=== PATIENT | female | born 1990 | race Caucasian/White ===

== ENCOUNTER 2024-02-12 07:55 | Inpatient (IN) ==
[2024-02-12] MEDS ORDERED: LIDOCAINE 1% LOCAL 20 ML VIAL INFIL PRN (10:02)
--- NOTE | 2024-02-12 10:09 | History & Physical Report ---
Date of Service February 12, 2024 Assessment & Plan (1) (vaginal after ): History of Present Illness Chief Complaint: active labor 41 weeks 1 day gestation previous section Primary Care Provider: NO PCP Patient is a 33-year-old 2 para 1. Previous section 2020. For prolonged rupture of membranes and failure to progress with arrest at 4 cm. She delivered a live 7 pound 11 ounce male in good condition via section. Patient now requests . She has had no problems. is well dated. Her due date is 02/04/2024. Hurst labor started 11 PM the night prior to admission. Been laboring throughout the night. Was admitted with strong contractions which she is breathing through and a small amount of bloody show. No history of leakage of fluid. Allergies Allergy/AdvReac Type Severity Reaction Status Date / Time No Known Allergies Allergy Unknown UNKNOWN Verified 11/09/20 14:06 Home Medications Medication Instructions Recorded Confirmed Type prenat.vits,jaiden,lma-odev-wbywv 1 tab PO DAILY 08/24/20 02/12/24 History ketorolac 0.5 % eye drops 1 drp OPR Q6H PRN edema #5 mL 08/12/22 02/12/24 Rx iron 1 tab PO DAILY 02/12/24 02/12/24 History Past Med/Surg History Problem List (Updated 02/12/24 @ 10:09 by Dwain Cardoso MD) (vaginal after ) No significant past medical history Medical History (Updated 02/12/24 @ 10:09 by Dwain Cardoso MD) Anemia History of chicken pox Surgical History H/O section H/O wisdom tooth extraction Family History Grandmother (Maternal) Colorectal cancer Father Colorectal cancer Denies family history of Ovarian cancer Prostate cancer Diabetes Heart disease Breast cancer Social History Smoking Status: Never smoker Second Hand Exposure: No; Do You Dip or Chew Tobacco: No; Hx Alcohol Use: No Hx Substance Use: No Preferred Language: Andorran Communication Ability: Effective Hearing Ability: Normal 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 Heart had a regular rhythm S1 and S2 are normal. Lungs are clear to auscultation percussion. Neck was supple trachea midline. Abdomen revealed a term size fetus estimated weight of 7 pounds. Well-healed Pfannenstiel scar. There was no calf tenderness. Pelvic exam revealed the cervix to be 90% effaced. 1 cm dilated. Mid position. Estimated level of the head was a -1 position. Small amount of bloody show. Results & Data Results & Data Vital Signs (Past 12 Hours) Vital Signs Pulse BP 02/12/24 08:59 96 H 108/55 L
[2024-02-12 11:01] LABS: Hematocrit (blood only) 39.4 % (37.0-47.0); Hemoglobin 13.5 g/dl (12.0-16.0); Mean Corpuscular Hemoglobin 30.5 pg (25.0-34.0); Mean Corpuscular Hgb Conc 34.3 g/dL (32.0-36.0); Mean Corpuscular Volume 88.9 fL (80.0-100.0); Mean Platelet Volume 11.5 fL (9.4-12.4); Platelet Count 151 K/uL (130-400); RDW Standard Deviation 42.3 fL (36.4-46.3); Red Blood Count 4.43 M/uL (4.20-5.40)
--- OUTSIDE RECORDS SUMMARY | 2024-02-12 12:51 | External Medical Summary | Summary of Care ---
Author Name Unknown Organization [facility] Address [address] [place] [address] Phone [phone] Care Team Providers Care Nuclear Medicine Tech Name Role Phone Peg Blood MD Primary Care Provider [phone] Reason for Visit * Reason Comments Return Visit Encounter Details Date Type Department Care Team (Late st Contact Info) Description 01/30/2024 2:45 PM EDT Office Visit Gynecology/Obstetri iker Das [address] [facility] [place] [address] Pablo Nunez MD [address] [facility] [place] [address] Nurse Thiago [facility] [address] [facility] [address] Health counseling*; Encounter for supervision of normal in first trimester, unspecified ; History of ; Multigravida of advanced maternal age in third trimester Allergies No known active allergiesdocumented as of this encounter (statuses as of 01/30/2024) Medications Medication Sig Dispensed Refills Start Date End Date Status 19 29-1 MG Oral Tablet Take 1 Tablet by mouth in the morning. Active Clindamycin Phosphate 1 % External GelIndications:Acne vulgaris Apply to clean face daily in the morning 60 g 5 11/18/2023 Active Ferrous Sulfate 300 MG/6.8ML Oral Solution (Iron Supplement) Take by mouth. Active Hydrocortisone (Perianal) 2.5 % External Cream Administer into the rectum 2 times a day. For no more than 7 days. 28 g 01/10/2024 Active documented as of this encounter (statuses as of 01/30/2024) Active Problems Problem Noted Date Diagnosed Date AMA (advanced maternal age) multigravida 35+ Supervision of normal 07/12/2023 History of 07/12/2023 Overview: Desires TOLAC Health counseling 07/04/2023 Overview: Problem Action Taken Date entered Entered by Date resolved Advance maternal age Maternal Medicine Consult 07/04/2023 Love Shine RN 07/04/2023 Lack of knowledge regarding Labor & Delivery Encourage childbirth education classes and Education class schedule given to patient 07/04/2023 Love Shine RN 07/04/2023 Lack of knowledge of community services Care Management Consult 07/04/2023 Love Shine RN 07/04/2023 Need for baby supplies Distribute cribs letter Refer to local support centers 07/04/2023 Love Shine RN 07/04/2023 Problem Action Taken Date entered Entered by Date resolved Current needs or questions Discussed WIC has letter. Patient denies having any current needs or questions 08/09/2023 Lisa Saab RN 08/09/2023 Problem Action Taken Date entered Entered by Date resolved Current needs or questions Patient denies having any current needs or questions 10/09/2023 Lisa Pollard RN 10/09/2023 Problem Action Taken Date entered Entered by Date resolved Current needs or questions Patient denies having any current needs or questions 11/05/2023 Lisa Saab RN 11/05/2023 Problem Action Taken Date entered Entered by Date resolved Current needs or questions Patient denies having any current needs or questions 12/09/2023 Lisa Saab RN 12/09/2023 Problem Action Taken Date entered Entered by Date resolved Current needs or questions GBS discussed. Ready for the hospital. Patient denies having any current needs or questions 01/10/2024 Lisa Saab RN 01/10/2024 Problem Action Taken Date entered Entered by Date resolved Current needs or questions Patient denies having any current needs or questions 01/20/2024 Lisa Saab RN 01/20/2024 Problem Action Taken Date entered Entered by Date resolved Current needs or questions Patient denies having any current needs or questions 01/30/2024 Lisa Pollard RN 01/30/2024 Last Assessment & Plan: Problem Action Taken Date entered Entered by Date resolved Current needs or questions GBS discussed Patient denies having any current needs or questions 12/27/2023 Lisa Saab RN 12/27/2023 Estimated Date of Delivery Comme nts Yes 02/04/2024 Based on Ultraso und documented as of this encounter (statuses as of 01/30/2024) Resolved Problems Problem Noted Date Diagnosed Date Resolved Date Antepartum anemia complicating 12/30/2020 04/04/2021 Overview: hgb 11.5 at 27 weeks, start BID Vitron C Marginal insertion of umbili jaiden cord affecting management of mother 12/30/2020 Overview: MFM advise growth scan , normal first 12/13/202003/22 Overview: Transfer care from [facility]; NOB labs - blooe type B+, antibody neg, rubella immune, RPR non-reactive, HIV neg, HbSag neg, Gc/Ct neg, 1 hr GTT 98; declined cell-free DNA screen documented as of this encounter (statuses as of 01/30/2024) Immunizations Name Administration Dates Next Due TDAP (age 10 and older)(Boostrix) 01/10/2021 documented as of this encounter Social History Tobacco Use Types Packs/Day Years Used Date Smoking Tobacco: Former Smokeless Tobacco: Never Alcohol Use Standard Drinks/Week Comments Not Currently 0 (1 standard drink = 0.6 oz pur e alcohol) PHQ-2 Answer Date Recorded PHQ Adult Total Score 0 07/12/2023 Hunger Vital Sign Answer Date Recorded Within the past 12 months, y ou worried that your food would run out before you got the money to buy more. Never true 07/12/19 24 Within the past 12 months, t he food you bought just didn't last and you didn't have money to get more. Never true 07/12/2023 [place] Depression Scale Answer Date Recorded [place] Depression Scale Total 6 12/09/2023 The thought of harming myself has occurred to me . Never 12/09/2023 Childcare Answer Date Recorded Do you feel overwhelmed with taking care of a child, family member or friend? No 07/12/2023 Does your family need help f inding childcare? (Household - for ages 0-17 years) Not on file 07/12/2023 Clothing Answer Date Recorded Have you been unable to get clothing when it was really needed? No 07/12/2023 Is your family able to get c lothes or diapers when needed? (Household - for ages 0-17 years) Not on file 07/12/2023 Personal Safety Answer Date Recorded Do you feel unsafe or have concerns for your saf ety? No 07/12/2023 Do you have concerns for you r family's safety? (Household - for ages 0-17 years) Not on file 07/12/2023 Utilities Answer Date Recorded Do you have trouble paying y our heating, water, or electric bill? No 07/12/2023 Is your family able to pay t he heat, water, or electric bill? (Household - for ages 0-17 years) Not on file 07/12/2023 Does your family have access to good internet? (Household - for ages 0-17 years) Not on file 07/12/2023 Employment Status Answer Date Recorded Are you unemployed or without regular income? No 07/12/2023 Does the household have a unm cancer centerlar source of income? (Household - for ages 0-17 years) Not on file 07/12/2023 Social Connections Answer Date Recorded How often do you feel lonely or isolated from th ose around you? Never 07/12/2023 Financial Resource Strain Answer Date R ecorded Do you have any trouble payi ng for your medications, or do you think you might in the future? No 07/12/2023 Does your family have troubl e paying for medicine? (Household - for ages 0-17 years) Not on file 07/12/2023 Transportation Needs Answer Date Record ed READ ONLY Do you have troubl e getting a ride to medical visits or work? Never True 07/12/2023 Does your family have a hard time getting a ride to doctors visits? (Household - for ages 0-17 years) Not on file 07/12/2023 Has lack of transportation k ept you from medical appointments, meetings, work, or from getting things needed for daily living? Check all that apply. (Adult - for ages 18 years and over) Not on file 07/12/2023 Do you (or your family) have trouble finding or paying for a ride (transportation)? (Household - for ages 0-17 years) Not on file 07/12/2023 Housing Stability Answer Date Recorded Do you currently live in a s helter or have no steady place to sleep at night? Yes 07/12/2023 READ ONLY Do you think you a re at risk of becoming homeless? No 07/12/2023 Does your family worry about paying for your home or becoming homeless? (Household - for ages 0-17 years) Not on file 0 07/12/2023 Are you homeless or worried that you might be in the future? (Adult - for ages 18 years and over) Not on file Are you (or your family) sybil eless or worried that you might be in the future? (Household - for ages 0-17 years) Not on file Food Insecurity Answer Date Recorded Do you need food for this week? No 07/12/2023 Are you able to get enough f ood for your family? (Household - for ages 0-17 years) Not on file 07/12/2023 Does your family need food t his week? (Household - for ages 0-17 years) Not on file 07/12/2023 Do you always have enough fo od for your family? (Household - for ages 0-17 years) Not on file 07/12/2023 Estimated Date of Delivery Comme nts Yes 02/04/2024 Based on Ultraso und Sex and Gender Information Value Date Recorded Sex Assigned at Female 07/12/2023 1:37 PM EDT Gender Identity Female 07/12/2023 1:37 PM EDT Sexual Orientation Straight 07/12/2023 1: 37 PM EDT Job Start Date Occupation Industry Not on file Not on file Not on file documented as of this encounter Progress Notes * Pablo Nunez MD - 01/30/2024 3:33 PM EDT Pt doing well TOLAC; Once again, we have discussed risk of Pt wanted to labor at home . I have discouraged that,. Made her aware, will benefit from monitoring in utero when she is in labor. So we cani intervene if there is distress. Discussed labor signs with pt * Nat Earl LPN - 01/30/2024 3:06 PM EDT [id number] Discuss TOLAC documented in this encounter Nursing Notes * Lisa Pollard RN - 01/30/2024 3:20 PM EDT Patient seen by [facility] Revenue Cycle Specialist. Patient denies any questions or concerns. documented in this encounter Plan of Treatment Health Maintenance Due Date Last Done Comments Hepatitis B Vaccine (1 of 3 - 19+ 3-dose series) 2007 COVID-19 Vaccine (2023-2 5 season) 2023 Influenza Vaccine (FLU shot) (#1) 2023 Depression Screening 07/11/2024 07/12/2023 Diabetes Screening 01/04/2026 01/04/2023 Pap Smear 07/11/2026 07/12/2023 Cervical Cancer Screening 07/11/2028 HPV/Co-Test 07/11/2028 07/12/2023, 08/20/2020 DTap/Tdap Vaccines (2 - Td o r Tdap) 01/10/2031 01/10/2021 HPV (Gardasil) Vaccine Aged Out No lo nger eligible based on patient's age to complete this topic MENINGOCOCCAL (MENACTRA/MENVEO) Aged Out No longer eligible b ased on patient's age to complete this topic Pneumococcal Vaccine: Pediatrics (0 to 5 Years) and At-Risk Patients (6 to 64 Years) Aged Out No longer eligible b ased on patient's age to complete this topic documented as of this encounter Medical Devices Not on filedocumented as of this encounter Visit Diagnoses Diagnosis Health counseling- Primary Other specified counseling Encounter for supervision of normal in first trimester, unspecified History of Other postprocedural status Multigravida of advanced maternal age in third trimester documented in this encounter Advance Directives * Full Code (Latest Code Status on File) Date Activated Date Inactivated Comments 03/25/2021 5:15 PM 03/28/2021 8:20 PM This order r eflects the patients wishes and were consensually agreed upon. Care Teams Nuclear Medicine Tech Relationship Specialty Start Date End Date Peg Blood MD [address] [facility] [place] [address] PCP - General Family Medicine 01/10/23 documented as of this encounter
--- OUTSIDE RECORDS SUMMARY | 2024-02-12 12:51 | External Medical Summary | Summary of Care ---
Author Name Unknown Organization [facility] Address [address] [place] [address] Phone [phone] Care Team Providers Care Clay Mixer Name Role Phone Peg Blood MD Primary Care Provider [phone] Encounter Details Date Type Department Care Team (Late st Contact Info) Description 01/01/2024 Telephone Gynecology/Obstetrics [facility] [address] [place] [address] Judith Montero, DNP, CNM [address] [facility] [place] [phone] Allergies No known active allergiesdocumented as of this encounter (statuses as of 01/01/2024) Medications Medication Sig Dispensed Refills Start Date End Date Status 19 29-1 MG Oral Tablet Take 1 Tablet by mouth in the morning. Active Clindamycin Phosphate 1 % External GelIndications:Acne vulgaris Apply to clean face daily in the morning 60 g 5 11/18/2023 Active Ferrous Sulfate 300 MG/6.8ML Oral Solution (Iron Supplement) Take by mouth. Act yu documented as of this encounter (statuses as of 01/01/2024) Active Problems Problem Noted Date Diagnosed Date [...] or questions 12/09/2023 Lisa Saab RN 12/09/2023 Last Assessment & Plan: Problem Action Taken Date entered Entered by Date resolved Current needs or questions GBS discussed Patient denies having any current needs or questions 12/27/2023 Lisa Saab RN 12/27/2023 Estimated Date of Delivery Comme nts Yes 01/28/2024 Based on last me nstrual period of 04/23/2023 (Exact Date) documented as of this encounter (statuses as of 01/01/2024) Resolved Problems Problem Noted Date Diagnosed Date Resolved Date Antepartum anemia complicating 12/30/2020 04/04/2021 Overview: hgb 11.5 at 27 weeks, start BID Vitron C Marginal insertion of umbili jaiden cord affecting management of mother 12/30/2020 Overview: MFM advise growth scan , normal first 12/13/202003/22 Overview: Transfer care from [facility]; NOB labs - blooe type B+, antibody neg, rubella immune, RPR non-reactive, HIV neg, HbSag neg, Gc/Ct neg, 1 hr GTT 98; declined cell-free DNA screen documented as of this encounter (statuses as of 01/01/2024) Immunizations Name Administration Dates Next Due TDAP [...] money to get more. Never true 07/12/2023 [place] Depression Scale Answer Date Recorded [place] Depression Scale Total 6 12/09/2023 The thought [...] No 07/12/2023 Does the household have a zuni hospitallar source of income? (Household - for ages [...] Estimated Date of Delivery Comme nts Yes 01/28/2024 Based on last me nstrual period of 04/23/2023 (Exact Date) Sex and Gender Information Value Date Recorded Sex Assigned at Female 07/12/2023 1:37 PM EDT Gender Identity Female 07/12/2023 1:37 PM EDT Sexual Orientation Straight 07/12/2023 1: 37 PM EDT Job Start Date Occupation Industry Not on file Not on file Not on file documented as of this encounter Miscellaneous Notes * Telephone Encounter - Rajni Dobbs LPN - 01/01/2024 2:16 PM EDT Patient notified. * Telephone Encounter - Rajni Dobbs LPN - 01/01/2024 1:37 PM EDT ----- Message from Judith Montero sent at 01/01/2024 1:33 PM EDT ----- Correction, she already has iron. So will cancel vitron c and she can just continue her iron supplementation. Thanks! * Telephone Encounter - Rajni Dobbs LPN - 01/01/2024 1:35 PM EDT left message for patient to call office * Telephone Encounter - Rajni Dobbs LPN - 01/01/2024 1:33 PM EDT ----- Message from Judith Montero sent at 01/01/2024 1:32 PM EDT ----- Please let piper know she is slightly anemic, increase dietary iron and rx placed for vitron c. Thanks! documented in this encounter Plan of Treatment Upcoming Encounters Date Type Department Care Team (Late st Contact Info) Description 01/03/2024 2:00 PM EDT Office Visit Gynecology/Obstetrics [facility] [address] [place] [address] Jenna Jean PA-C [address] [employer] [place] [address] Nurse Thiago [facility] [place] [address] [place] [address] 01/06/2024 9:45 AM EDT Imaging Radiology [facility] [address] [facility] [address] [place] [address] Health Maintenance Due Date Last Done Comments Hepatitis B Vaccine (1 of 3 - 19+ 3-dose series) 2007 COVID-19 Vaccine (1 - 2022-2 4 season) 2023 Influenza Vaccine (FLU shot) (#1) [...] Not on filedocumented as of this encounter Advance Directives * Full Code (Latest Code Status on File) Date Activated Date Inactivated Comments 03/25/2021 5:15 PM 03/28/2021 8:20 PM This order r eflects the patients wishes and were consensually agreed upon. Care Teams Clay Mixer Relationship Specialty Start Date End Date Peg Blood MD [address] [place] [address] PCP - General Family Medicine 01/10/23 documented as of this encounter
--- OUTSIDE RECORDS SUMMARY | 2024-02-12 12:51 | External Medical Summary ---
Author Name Unknown Address Unknown Organization [id number]:[facility] - [address] [facility] [address] Laboratory Report Ordering Provider Test Date Status [email or web address] 01/03/2024 14:41:02 Final Observation Date Value Abnormality Reference (Units ) Status Bacterial vaginosis [Interpretation] in Vaginal fluid Qualitative 01/03/2024 14:41:02 Negative Negative Final Negative for Bacterial Vagin osis. Correlate results with other clinical findings. Chiara sp DNA [Presence] in Vaginal fluid by Probe 01/03/2024 14:41:02 Negative Negative Final No Chiara species group RNA detected. Correlate results with other clinical findings. Chiara glabrata RNA [Presen ce] in Vaginal fluid by CATALINO with probe detection 01/03/2024 14:41:02 Negative Negative Final No Chiara glabrata RNA dete cted. Correlate results with other clinical findings. Trichomonas vaginalis DNA [P resence] in Vaginal fluid by Probe 01/03/2024 14:41:02 Negative Negative Final No Trichomonas vaginalis RNA detected. Performing Location [facility] - [address] [facility] [address]
--- OUTSIDE RECORDS SUMMARY | 2024-02-12 12:51 | External Medical Summary | Summary of Care ---
Author Name Unknown Organization [facility] Address [address] [place] [address] Phone [phone] Care Team Providers Care Hazmat Cdl A Driver Name Role Phone Peg Blood MD Primary Care Provider [phone] Reason for Visit * Reason Comments Return Visit Encounter Details Date Type Department Care Team (Late st Contact Info) Description 01/20/2024 8:30 AM EDT Office Visit Gynecology/Obstetri iker Das [address] [facility] [place] [address] Pablo Nunez MD [address] [place] [address] Nurse Thiago [facility] Return Essence [address] [facility] [address] Health counseling*; Encounter for supervision of other normal in third trimester; History of ; Multigravida of advanced maternal age in third trimester Allergies No known active allergiesdocumented as of this encounter (statuses as of 01/20/2024) Medications Medication Sig Dispensed Refills Start Date [...] as of this encounter (statuses as of 01/20/2024) Active Problems Problem Noted Date Diagnosed Date [...] Shine RN 07/04/2023 Lack of knowledge of [facility] services Care Management Consult 07/04/2023 Love Shine [...] or questions 01/20/2024 Lisa Saab RN 01/20/2024 Last Assessment & Plan: Problem Action Taken Date entered Entered by Date resolved Current needs or questions GBS discussed Patient denies having any current needs or questions 12/27/2023 Lisa Saab RN 12/27/2023 Estimated Date of Delivery Comme nts Yes 02/04/2024 Based on Ultraso und documented as of this encounter (statuses as of 01/20/2024) Resolved Problems Problem Noted Date Diagnosed Date Resolved Date Antepartum anemia complicating 12/30/2020 04/04/2021 Overview: hgb 11.5 at 27 weeks, start BID Vitron C Marginal insertion of umbili jaiden cord affecting management of mother 12/30/2020 Overview: MFM advise growth scan , normal first 12/13/202003/22 Overview: Transfer care from [facility]; NOB labs - blooe type B+, antibody neg, rubella immune, RPR non-reactive, HIV neg, HbSag neg, Gc/Ct neg, 1 hr GTT 98; declined cell-free DNA screen documented as of this encounter (statuses as of 01/20/2024) Immunizations Name Administration Dates Next Due TDAP [...] money to get more. Never true 07/12/2023 [place] Depression Scale Answer Date Recorded [place] Depression Scale Total 6 12/09/2023 The thought [...] No 07/12/2023 Does the household have a re lar source of income? (Household - for ages [...] on file documented as of this encounter Last Filed Vital Signs Vital Sign Reading Time Taken Comments Blood Pressure 100/62 01/20/2024 8:34 AM EDT Pulse - - Temperature - - Respiratory Rate - - Oxygen Saturation - - Inhaled Oxygen Concentration - - Weight 79.4 kg (175 lb) 01/20/2024 8:34 AM EDT Height 165.1 cm (5' 5") 01/20/2024 8:34 AM EDT Body Mass Index 29.12 01/20/2024 8:34 AM EDT documented in this encounter Progress Notes * Pablo Nunez MD - 01/20/2024 8:41 AM EDT Ist time seeing pt Pt doing well No comaplaints Prior c/s discussed I reviewed with the patient risks of a (even if previously successful) for uterine rupture which may lead to adverse events to include maternal +/- , hypoxia leading to brain injury or cerbral palsy, need for emergent c/s requiring hysterectomy. Possible need for transfusion. I reviewed that this could occur .5-1%. . She is aware that with each c/section the risk for uterine rupture increases. Pt states understanding and wishes to proceed with trial of labor documented in this encounter Nursing Notes * Lisa Saab RN - 01/20/2024 8:42 AM EDT Patient seen by [facility] Baseball Sewer Hand. * Nat Earl LPN - 01/20/2024 8:35 AM EDT 37w6d Denies any concerns documented in this encounter Plan of Treatment Upcoming Encounters Date Type Department Care Team (Late st Contact Info) Description 01/30/2024 2:45 PM EDT Office Visit Gynecology/Obstetrics Marco Antonio Das [address] [place] [address] Pablo Nunez MD [address] [place] [address] Nurse Thiago [facility] Return Essence [address] [place] [address] Health Maintenance Due Date Last Done Comments Hepatitis B Vaccine (1 of 3 - 19+ 3-dose series) 2007 COVID-19 Vaccine (1 - 2023-2 5 season) 2023 Influenza Vaccine (FLU shot) [...] Other specified counseling Encounter for supervision of other normal in third trimester History of Other postprocedural status Multigravida of advanced maternal age in third trimester documented in this encounter Advance Directives * Full Code (Latest Code Status on File) Date Activated Date Inactivated Comments 03/25/2021 5:15 PM 03/28/2021 8:20 PM This order r eflects the patients wishes and were consensually agreed upon. Care Teams Hazmat Cdl A Driver Relationship Specialty Start Date End Date Peg Blood MD [address] [place] [address] PCP - General Family Medicine 01/10/23 documented as of this encounter
--- OUTSIDE RECORDS SUMMARY | 2024-02-12 12:51 | External Medical Summary | Summary of Care ---
Author Name Unknown Organization [facility] Address [address] [facility] [place] [address] Phone [phone] Care Team Providers Care Contracting Officer Name Role Phone Peg Blood MD Primary Care Provider [phone] Reason for Visit * Reason Comments Healthy Beginnings Return Encounter Details Date Type Department Care Team (Late st Contact Info) Description 02/10/2024 8:45 AM EDT Office Visit Gynecology/Obstetri iker Das [address] [facility] [place] [address] Jenna Jean PA-C [address] [place] [address] Nurse Thiago [facility] Return Essence [address] [place] [address] Encounter for supervision of other normal in third trimester*; Health counseling; History of ; Multigravida of advanced maternal age in third trimester; Post-term , 40-42 weeks of gestation Allergies No known active allergiesdocumented as of this encounter (statuses as of 02/10/2024) Medications Medication Sig Dispensed Refills Start Date [...] as of this encounter (statuses as of 02/10/2024) Active Problems Problem Noted Date Diagnosed Date [...] Shine RN 07/04/2023 Lack of knowledge of [facility] services Care Management Consult 07/04/2023 Love Shine [...] or questions 01/30/2024 Lisa Pollard RN 01/30/2024 Problem Action Taken Date entered Entered by Date resolved Current needs or questions Patient denies having any current needs or questions 02/10/2024 Lisa Saab RN 02/10/2024 Last Assessment & Plan: Problem Action Taken Date entered Entered by Date resolved Current needs or questions GBS discussed Patient denies having any current needs or questions 12/27/2023 Lisa Saab RN 12/27/2023 Estimated Date of Delivery Comme nts Yes 02/04/2024 Based on Ultraso und documented as of this encounter (statuses as of 02/10/2024) Resolved Problems Problem Noted Date Diagnosed Date Resolved Date Antepartum anemia complicating 12/30/2020 04/04/2021 Overview: hgb 11.5 at 27 weeks, start BID Vitron C Marginal insertion of umbili jaiden cord affecting management of mother 12/30/2020 Overview: MFM advise growth scan , normal first 12/13/202003/22 Overview: Transfer care from [facility]; NOB labs - blooe type B+, antibody neg, rubella immune, RPR non-reactive, HIV neg, HbSag neg, Gc/Ct neg, 1 hr GTT 98; declined cell-free DNA screen documented as of this encounter (statuses as of 02/10/2024) Immunizations Name Administration Dates Next Due TDAP [...] money to get more. Never true 07/12/2023 [place] Depression Scale Answer Date Recorded [place] Depression Scale Total 6 12/09/2023 The thought [...] 07/12/2023 Does the household have a re gular source of income? (Household - for ages [...] Sign Reading Time Taken Comments Blood Pressure 106/64 02/10/2024 8:57 AM EDT Pulse - - Temperature - - Respiratory Rate - - Oxygen Saturation - - Inhaled Oxygen Concentration - - Weight 80.3 kg (177 lb) 02/10/2024 8:57 AM EDT Height - - Body Mass Index 29.45 01/20/2024 8:34 AM EDT documented in this encounter Progress Notes * Jenna Jean PA-C - 02/10/2024 9:20 AM EDT 40w6d Contractions last night every 30 minutes then stopped. Politely declines cervical check. Denies VB,LOF. Baby is active. Reviewed scheduling postdate IOL given dates today. Pt states wants to avoid IOL as much as possible. Reviewed scheduling out as dates may not be available if she waits. She understands, declines scheduling today. Labor precautions given RTC in 2 days for NEDRA/NST/IZA for postdates Jenna Jean PA-C * Lucila Cardona CMA - 02/10/2024 8:57 AM EDT 40w6d Denies any concerns. Declines cervical check. documented in this encounter Plan of Treatment Upcoming Encounters Date Type Department Care Team (Late st Contact Info) Description 02/13/2024 9:30 AM EDT Imaging Radiology [address] [place] [address] Scheduled Orders Name Type Priority Associated Diagnoses Orde r Schedule US PREG LIMITED 1 OR MORE FETUSES Medical Imaging Routine Encounter for supervision of other normal in third trimester Post-term , 40-42 weeks of gestation Expected: 02/10/2024, Expires: 03/12/2025 Health Maintenance Due Date Last Done Comments [...] as of this encounter Visit Diagnoses Diagnosis Encounter for supervision of other normal in third trimester- Primary Health counseling Other specified counseling History of Other postprocedural status Multigravida of advanced maternal age in third trimester Post-term , 40-42 weeks of gestation Post term , unspecified episode of care documented in this encounter Advance Directives * Full Code (Latest Code Status on File) Date Activated Date Inactivated Comments 03/25/2021 5:15 PM 03/28/2021 8:20 PM This order r eflects the patients wishes and were consensually agreed upon. Care Teams Contracting Officer Relationship Specialty Start Date End Date Peg Blood MD [address] [place] [address], [place] [address] PCP - General Family Medicine 01/10/23 documented as of this encounter
--- OUTSIDE RECORDS SUMMARY | 2024-02-12 12:51 | External Medical Summary ---
Author Name Unknown Address Unknown Organization K01[place] [place] [facility] [address] [place] [address] Laboratory Report Ordering Provider Test Date Status WESLEY MCPHERSON 01/10/2024 09:02:26 Final Observation Date Value Abnormality Reference (Units ) Status Streptococcus agalactiae DNA [Presence] in Specimen by CATALINO with probe detection 01/10/2024 09:02:26 Negative Negative Final No Group B Streptococcus det ected by culture-enhanced PCR (amplified probe). GBS GBSCT - [facility] 01/10/2024 09:02:26 0.0 Final GBS SPCCT - [facility] 01/10/2024 09:02:26 31.5 Final Performing Location [facility] [place] [address] [place] [address]
--- OUTSIDE RECORDS SUMMARY | 2024-02-12 12:51 | External Medical Summary | Summary of Care ---
Author Name Unknown Organization [facility] Address [address] [facility] [place] [address] Phone [phone] Care Team Providers Care Take Away Man Name Role Phone Peg Blood MD Primary Care Provider [phone] Reason for Visit * Reason Comments Healthy Beginnings Return Encounter Details Date Type Department Care Team (Late st Contact Info) Description 01/03/2024 2:00 PM EDT Office Visit Gynecology/Obstetri iker Das [address] [facility] [place] [address] Jenna Jean PA-C [address] [place] [address] Nurse Thiago [facility] Return Essence [address] [place] [address] Encounter for supervision of other normal in third trimester*; Health counseling; History of ; Multigravida of advanced maternal age in third trimester Allergies No known active allergiesdocumented as of this encounter (statuses as of 01/03/2024) Medications Medication Sig Dispensed Refills Start Date [...] as of this encounter (statuses as of 01/03/2024) Active Problems Problem Noted Date Diagnosed Date [...] as of this encounter (statuses as of 01/03/2024) Resolved Problems Problem Noted Date Diagnosed Date Resolved Date Antepartum anemia complicating 12/30/2020 04/04/2021 Overview: hgb 11.5 at 27 weeks, start BID Vitron C Marginal insertion of umbili jaiden cord affecting management of mother 12/30/2020 Overview: MFM advise growth scan , normal first 12/13/202003/22 Overview: Transfer care from [facility]; NOB labs - blooe type B+, antibody neg, rubella immune, RPR non-reactive, HIV neg, HbSag neg, Gc/Ct neg, 1 hr GTT 98; declined cell-free DNA screen documented as of this encounter (statuses as of 01/03/2024) Immunizations Name Administration Dates Next Due TDAP [...] money to get more. Never true 07/12/2023 [place] Depression Scale Answer Date Recorded [place] Depression Scale Total 6 12/09/2023 The thought [...] Sign Reading Time Taken Comments Blood Pressure 84/60 01/03/2024 1:54 PM EDT Pulse - - Temperature - - Respiratory Rate - - Oxygen Saturation - - Inhaled Oxygen Concentration - - Weight 77.1 kg (170 lb) 01/03/2024 1:54 PM EDT Height 165.1 cm (5' 5") 01/03/2024 1:54 PM EDT Body Mass Index 28.29 01/03/2024 1:54 PM EDT documented in this encounter Progress Notes * Jenna Jean PA-C - 01/03/2024 3:01 PM EDT 35w3d Reviewed AYDEE with patient. Currently 01/28/2024. Her initial AYDEE selected was based on LMP (exact date). It was 7 days different from first trimeter ultrasound with AYDEE 02/04/2024. Anatomy ultrasound completed showed growth consistent with AYDEE from initial scan. Reviewed in detail with patient and based on this suggested AYDEE change to first trimester ultrasound dating which she was completely agreeable to. AYDEE 02/04/2024. GBS initially collected based on previous dating. Discontinued. Pt informed of likely need for repeat GBS with next visit and stated understanding. Pt also with compliant of vaginal itching, starting earlier this week. Has not tried anything. Denies clumpy white discharge. Vaginosis collected. Speculum exam revealed normal physiologic appearing discharge, mild erythema near introitus, cervix visually closed. Construction Supervisor Documentation Provider requested frit burner. Name of frit burner: Letty Lindsay LPN Ultrasound completed following visit today -- confirmed cephalic. Denies VB, LOF, contractions. Pos FM. RTC in 1 week Jenna Jean PA-C documented in this encounter Nursing Notes * Lisa Pollard RN - 01/03/2024 2:20 PM EDT Patient seen by [facility] Railroad Hand. Patient denies any questions or concerns. Lisa Pollard RN * Letty Young LPN - 01/03/2024 2:07 PM EDT 36w3d GBS today Vaginal itching earlier this week. documented in this encounter Plan of Treatment Upcoming Encounters Date Type Department Care Team (Late st Contact Info) Description 01/10/2024 8:30 AM EDT Office Visit [facility]necology[facility]stetrics Marco Antonio [facility] [place] [address] Jenna Jean PA-C [address] [place] [address] Nurse Thiago [facility] Return Essence [address] [place] [address] Pending Results Name Type Priority Associated Diagnoses Date /Time VAGINOSIS PANEL, PCR Lab Routine Encounter for supervision of other normal in third trimester 01/03/2024 2:41 PM EDT Scheduled Orders Name Type Priority Associated Diagnoses Orde r Schedule VAGINOSIS PANEL, PCR Lab Routine Encounter for supervision of other normal in third trimester Expected: 01/03/2024, Expires: 01/02/2025 Health Maintenance Due Date Last Done Comments [...] and were consensually agreed upon. Care Teams Take Away Man Relationship Specialty Start Date End Date Peg Blood MD [address] [place] [address] PCP - General Family Medicine 01/10/23 documented as of this encounter
--- OUTSIDE RECORDS SUMMARY | 2024-02-12 12:51 | External Medical Summary | Summary of Care ---
Author Name Unknown Organization [facility] Address [address] [place] [address] Phone [phone] Care Team Providers Care Metal Mold Dresser Name Role Phone Peg Blood MD Primary Care Provider [phone] Encounter Details Date Type Department Care Team (Late st Contact Info) Description 02/12/2024 Telephone [facility] Gynecology and Obstetrics [address] [place] [address] Mallika Francois CNM [address] [place], [place] [id number] Allergies No known active allergiesdocumented as of this encounter (statuses as of 02/12/2024) Medications Medication Sig Dispensed Refills Start Date [...] than 7 days. 28 g 01/10/2024 Active Breast Pump For lactating mother to breastfeed. 1 Each 02/10/2024 Active documented as of this encounter (statuses as of 02/12/2024) Active Problems Problem Noted Date Diagnosed Date AMA (advanced maternal age) multigravida 35+ Supervision of normal 07/12/2023 History of 07/12/2023 Overview: Desires [facility] Health counseling 07/04/2023 Overview: Problem Action Taken Date entered Entered by Date resolved Advance maternal age Maternal Medicine Consult 07/04/2023 Love Shine, RUSS 07/04/2023 Lack of knowledge regarding Labor & Delivery Encourage childbirth education classes and Education class schedule given to patient 07/04/2023 Love Shine RN 07/04/2023 Lack of knowledge of [facility] services Care Management Consult 07/04/2023 Love [...] as of this encounter (statuses as of 02/12/2024) Resolved Problems Problem Noted Date Diagnosed Date Resolved Date Antepartum anemia complicating 12/30/2020 04/04/2021 Overview: hgb 11.5 at 27 weeks, start BID Vitron C Marginal insertion of umbili jaiden cord affecting management of mother 12/30/2020 Overview: MFM advise growth scan , normal first 12/13/202003/22 Overview: Transfer care from [facility]; NOB labs - blooe type B+, antibody neg, rubella immune, RPR non-reactive, HIV neg, HbSag neg, Gc/Ct neg, 1 hr GTT 98; declined cell-free DNA screen documented as of this encounter (statuses as of 02/12/2024) Immunizations Name Administration Dates Next Due TDAP [...] money to get more. Never true 07/12/2023 [place] Depression Scale Answer Date Recorded [place] Depression Scale Total 6 12/09/2023 The thought [...] encounter Miscellaneous Notes * Telephone Encounter - Mallika Francois CNM - 02/12/2024 1:53 AM EDT Sharlene reports that she has been having contractions for the last 15-20 minutes for the last hour. She affirms movement, and she denies any bleeding or leaking of fluid. Recommended hydration, tylenol, warm bath. Call back if contractions are 5 min apart for one hour. documented in this encounter Plan of Treatment Upcoming Encounters Date Type Department Care Team (Late st Contact Info) Description 02/12/2024 10:00 AM EDT Office Visit Gynecology/Obstetrics [facility] [address] [place] [address] Ofelia Wodo CRNP [address] [place] [address] [facility] [address] [place] [address] 02/12/2024 12:30 PM EDT Imaging Radiology [facility] [address] [place] [address] Health Maintenance Due Date Last Done Comments [...] and were consensually agreed upon. Care Teams Metal Mold Dresser Relationship Specialty Start Date End Date Peg Blood MD [address] [facility] [place] [address] PCP - General Family Medicine 01/10/23 documented as of this encounter
--- OUTSIDE RECORDS SUMMARY | 2024-02-12 12:51 | External Medical Summary | Summary of Care ---
Author Name Unknown Organization [facility] Address [address] [facility] [place] [address] Phone [phone] Care Team Providers Care Roof Service Technician Name Role Phone Peg Blood MD Primary Care Provider [phone] Reason for Visit * Reason Comments Return Visit Encounter Details Date Type Department Care Team (Late st Contact Info) Description 01/10/2024 8:30 AM EDT Office Visit Gynecology/Obstetri iker Dsa [address] [facility] [place] [address] Jenna Jean PA-C [address] [place] [address] Nurse Thiago [facility] Return Essence [address] [facility] [place] [address] Encounter for supervision of other normal in third trimester*; Health counseling; History of ; Multigravida of advanced maternal age in third trimester Allergies No known active allergiesdocumented as of this encounter (statuses as of 01/10/2024) Medications Medication Sig Dispensed Refills Start Date [...] as of this encounter (statuses as of 01/10/2024) Active Problems Problem Noted Date Diagnosed Date [...] Shine RN 07/04/2023 Lack of knowledge of [facility] services Care Management Consult 07/04/2023 Love Shine [...] or questions 01/10/2024 Lisa Saab RN 01/10/2024 Last Assessment & Plan: Problem Action Taken Date entered Entered by Date resolved Current needs or questions GBS discussed Patient denies having any current needs or questions 12/27/2023 Lisa Saab RN 12/27/2023 Estimated Date of Delivery Comme nts Yes 02/04/2024 Based on Ultraso und documented as of this encounter (statuses as of 01/10/2024) Resolved Problems Problem Noted Date Diagnosed Date Resolved Date Antepartum anemia complicating 12/30/2020 04/04/2021 Overview: hgb 11.5 at 27 weeks, start BID Vitron C Marginal insertion of umbili jaiden cord affecting management of mother 12/30/2020 Overview: MFM advise growth scan , normal first 12/13/202003/22 Overview: Transfer care from [facility]; NOB labs - blooe type B+, antibody neg, rubella immune, RPR non-reactive, HIV neg, HbSag neg, Gc/Ct neg, 1 hr GTT 98; declined cell-free DNA screen documented as of this encounter (statuses as of 01/10/2024) Immunizations Name Administration Dates Next Due TDAP [...] money to get more. Never true 07/12/2023 [place] Depression Scale Answer Date Recorded [place] Depression Scale Total 6 12/09/2023 The thought [...] No 07/12/2023 Does the household have a [facility] source [facility] income? (Household - for [...] Sign Reading Time Taken Comments Blood Pressure 96/56 01/10/2024 8:37 AM EDT Pulse - - Temperature - - Respiratory Rate - - Oxygen Saturation - - Inhaled Oxygen Concentration - - Weight 78.5 kg (173 lb) 01/10/2024 8:37 AM EDT Height 165.1 cm (5' 5") 01/10/2024 8:37 AM EDT Body Mass Index 28.79 01/10/2024 8:37 AM EDT documented in this encounter Progress Notes * Jenna Jean PA-C - 01/10/2024 8:59 AM EDT 36w3d Doing well. Denies VB, LOF, contractions. Pos fm. GBS recollected today due to due date change. Several external hemorrhoids noted, not thrombosed. Pt asking for additional medication for hemorrhoids. Has been using preparation H with limited to no relief. Pruritis is most common bothersome symptom for her. Hydrocortisone cream short course sentfor additional relief. RTC in 1 week Jenna Jean PA-C documented in this encounter Nursing Notes * Lisa Saab RN - 01/10/2024 8:46 AM EDT Patient seen by [facility] Accounting Recruiter. documented in this encounter Plan of Treatment Upcoming Encounters Date Type Department Care Team (Late st Contact Info) Description 01/20/2024 8:30 AM EDT Office Visit Gynecology/Obstetrics Marco Antonio Das [address] [place] [address] Pablo Nunez MD [address] [place] [address] Nurse Thiago [facility] Beginning Return Essence [address] [place] [address] Pending Results Name Type Priority Associated Diagnoses Date /Time GROUP B STREP CULTURE/PCR Lab Routine Encounter for supervision of other normal in third trimester 01/10/2024 9:02 AM EDT Health Maintenance Due Date Last Done Comments [...] and were consensually agreed upon. Care Teams Roof Service Technician Relationship Specialty Start Date End Date Peg Blood MD [address] [place] [address] PCP - General Family Medicine 01/10/23 documented as of this encounter
--- OUTSIDE RECORDS SUMMARY | 2024-02-12 12:52 | External Medical Summary | Summary of Care ---
Author Name Unknown Organization [facility] Address [address] [place] [address] Phone [phone] Care Team Providers Care Sheet Metal Shop Helper Name Role Phone Peg Blood MD Primary Care Provider [phone] Reason for Visit * Reason Comments Return Visit Encounter Details Date Type Department Care Team (Late st Contact Info) Description 12/09/2023 11:45 AM EDT Office Visit Gynecology/Obstetric s [facility] [address] [place] [address] Judith Mc, DNP, CNM [address] [place], [place] [id number] Health counseling*; Encounter for supervision of normal , antepartum, unspecified ; History of ; Multigravida of advanced maternal age in third trimester; Antepartum anemia complicating Allergies No known active allergiesdocumented as of [...] Solution (Iron Supplement) Take by mouth. Active Vitron-C 65-125 MG Oral Tablet (Iron-Vitamin C 65-125 mg per tab)Indications:Ant epartum anemia complicating Take 1 Tablet by mouth in the morning. 60 Tablet 5 01/01/2024 01/01/2024 Discontinued (Medication/ Dose Changed) documented as of this encounter (statuses as [...] normal first 12/13/202003/22 Overview: Transfer care from [facility]; NOB labs - blooe type B+, [...] money to get more. Never true 07/12/2023 [place] Depression Scale Answer Date Recorded [place] Depression Scale Total 6 12/09/2023 The thought [...] No 07/12/2023 Does the household have a [facility] source of income? (Household - for ages [...] Sign Reading Time Taken Comments Blood Pressure 98/58 12/09/2023 11:53 AM EDT Pulse - - Temperature - - Respiratory Rate - - Oxygen Saturation - - Inhaled Oxygen Concentration - - Weight 78.5 kg (173 lb) 12/09/2023 11:53 AM EDT Height - - Body Mass Index 28.79 07/12/2023 1:19 PM EDT documented in this encounter Progress Notes * Judith Mc, BOBO, DAWNA - 12/09/2023 12:05 PM EDT Piper Castellanos is a 33 year old female here for her routine OB appointment at 32w6d Her Estimated Date of Delivery: 01/28/24 REVIEW OF SYSTEMS: She affirms movement. Denies vaginal bleeding, LOF, contractions, N/V, headaches. [place] Depression Scale: [place] Depression Scale Total: 6 [place] suicide question and score: Score of 3 = Yes, quite often. Score of 2 = Sometimes. Score of 1 = Hardly ever The thought of harming myself has occurred to me.: 0 States she feels more hormonally "emanuel" not depressed. Just feels burned out with work and caring for child. States she has felt much improved energy after taking iron. PHYSICAL EXAM: Filed Vitals: 12/09/23 1153 BP: 98/58 Weight: 78.5 kg (173 lb) ASSESSMENT/PLAN: (Z34.90) Encounter for supervision of normal , antepartum, unspecified (Z98.891) History of Plan: Plans a TOLAC (O09.523) Multigravida of advanced maternal age in third trimester Supervision of - Will have repeat CBC drawn next visit - labor precautions and kick counts reviewed - RTO in 2 weeks Judith Mc DNP, CNM * Lisa Saab RN - 12/09/2023 11:54 AM EDT Patient seen by [facility] Programmer Developer. Patient denies any questions or concerns. documented in this encounter Miscellaneous Notes * Addendum Note - Judith Mc DNP, CNM - 01/01/2024 1:34 PM EDTAddended by: JUDITH MC on: 01/01/2024 01:34 PM Modules accepted: Orders * Result Encounter Note - Judith Mc DNP, CNM - 01/01/2024 1:33 PM EDT Correction, she already has iron. So will cancel vitron c and she can just continue her iron supplementation. Thanks! * Addendum Note - Judith Mc DNP, CNM - 01/01/2024 1:32 PM EDTAddended by: JUDITH MC on: 01/01/2024 01:32 PM Modules accepted: Orders * Result Encounter Note - Judith Mc DNP, CNM - 01/01/2024 1:32 PM EDT Please let piper know she is slightly anemic, increase dietary iron and rx placed for vitron c. Thanks! documented in this encounter Plan of Treatment Upcoming Encounters Date Type Department Care Team (Late st Contact Info) Description 01/03/2024 2:00 PM EDT Office Visit Gynecology/Obstetrics [facility] [address] [place] [address] Jenna Jean PA-C [address] [place] [address] Nurse Thiago [facility] [address] [place] [address] 01/06/2024 9:45 AM EDT Imaging Radiology [facility] 2nd Floor, [place] [address] [place] [address] Health Maintenance Due Date Last Done Comments Hepatitis B Vaccine (1 of 3 - 19+ 3-dose series) 2007 COVID-19 Vaccine (2022-2 4 season) 2023 Influenza Vaccine (FLU shot) [...] Not on filedocumented as of this encounter Procedures Procedure Name Priority Date/Time Associated Diagnosis Comments DIFFERENTIAL, AUTOMATED Routine 12/27/2023 12:19 PM EDT Antepartum anemia complicating CBC Routine 12/27/2023 12:19 PM EDT Antepartum anemia complicating CBC Routine 12/27/2023 12:19 PM EDT Antepartum anemia complicating DIFFERENTIAL, TECHNOLOGIST REVIEW Routine 12/27/2023 12:19 PM EDT Antepartum anemia complicating documented in this encounter Results * (ABNORMAL) DIFFERENTIAL, TECHNOLOGIST REVIEW (12/27/2023 12:19 PM EDT) WBC 12.54(H) 4.00 - 10.80 K/uL 12/27/2023 3:35 PM EDT [facility] Neutrophils % 82.0(H) 40.0 - 75.0 % 12/27/2023 3:35 PM EDT [facility] Lymphocytes % 16.0(L) 18.0 - 42.0 % 12/27/2023 3:35 PM EDT [facility] Monocytes % 1.0 1.0 - 11.0 % 12/27/2023 3:35 PM EDT [facility] Metamyelocytes % 1.0(H) <=0.0 % 12/27/19 3:35 PM EDT [facility] Absolute Neutrophils 10.28(H) 1.80 - 7.70 K/uL 12/27/2023 3:35 PM EDT [facility] Absolute Lymphocytes 2.01 1.00 - 4.80 K/uL 12/27/2023 3:35 PM EDT [facility] Absolute Monocytes 0.13 0.00 - 1.10 K/uL 12/27/2023 3:35 PM EDT [facility] Absolute Metamyelocytes 0.13(H) <=0.00 K/uL 12/27/2023 3:35 PM EDT [facility] nRBCs 12/27/2023 3:35 PM EDT [facility] Blood Venous blood specimen / Unknown Venipuncture / Unknown 12/27/2023 12:19 PM EDT 12/27/2023 12:19 PM EDT Judith Mc DNP, CNM [facility] [address] [place] [address] * DIFFERENTIAL, AUTOMATED (12/27/2023 12:19 PM EDT) Blood Venous blood specimen / Unknown Venipuncture / Unknown 12/27/2023 12:19 PM EDT 12/27/2023 12:19 PM EDT CARMELA Hinds DNP [facility] [address] [place] [address] * (ABNORMAL) CBC (12/27/2023 12:19 PM EDT) WBC 12.54(H) 4.00 - 10.80 K/uL 12/27/2023 3:35 PM EDT [facility] RBC 3.81 3.85 - 5.15 M/uL 12/27/2023 3:35 PM EDT [facility] HGB 11.7(L) 12.0 - 15.3 g/dL 12/27/2023 3:35 PM EDT [facility] HCT 35.4(L) 36.0 - 45.2 % 12/27/2023 3:35 PM EDT [facility] MCV 92.9 81.5 - 97.5 fL 12/27/2023 3:35 PM EDT [facility] MCH 30.7 27.0 - 34.0 pg 12/27/2023 3:35 PM EDT [facility] MCHC 33.1 32.0 - 36.0 g/dL 12/27/2023 3:35 PM EDT [facility] RDW 13.4 11.5 - 15.5 % 12/27/2023 3:35 PM EDT [facility] PLT 167 140 - 400 K/uL 12/27/2023 3:35 PM EDT [facility] MPV 10.7 6.6 - 11.1 fL 12/27/2023 3:35 PM EDT [facility] Blood Venous blood specimen / Unknown Venipuncture / Unknown 12/27/2023 12:19 PM EDT 12/27/2023 12:19 PM EDT Judith Mc DNP, CNM [facility] [address] [place] [address] documented in this encounter Visit Diagnoses Diagnosis Health counseling- Primary Other specified counseling Encounter for supervision of normal , antepartum, unspecified History of Other postprocedural status Multigravida of advanced maternal age in third trimester Antepartum anemia complicating Anemia, antepartum documented in this encounter Advance Directives * Full Code (Latest Code Status on File) Date Activated Date Inactivated Comments 03/25/2021 5:15 PM 03/28/2021 8:20 PM This order r eflects the patients wishes and were consensually agreed upon. Care Teams Sheet Metal Shop Helper Relationship Specialty Start Date End Date Peg Blood MD [address] [facility] [place] [address] PCP - General Family Medicine 01/10/23 documented as of this encounter
--- OUTSIDE RECORDS SUMMARY | 2024-02-12 12:52 | External Medical Summary | Summary of Care ---
Author Name Unknown Organization [facility] Address [address] [place] [address] Phone [phone] Care Team Providers Care Utility Locator Name Role Phone Peg Blood MD Primary Care Provider [phone] Reason for Visit * Reason Onset Date Comments Medication Refill 11/14/2023 Encounter Details Date Type Department Care Team (Late st Contact Info) Description 11/14/2023 Refill Dermatology [facility] [address] [place] [address] Carmelita Schroeder PA-C [address] [place] [address] Acne vulgaris Allergies No known active allergiesdocumented as of this encounter (statuses as of 11/18/2023) Medications Medication Sig Dispensed Refills Start Date End Date Status 29-1 MG Oral Tablet Take 1 Tablet by mouth in the morning. Active Clindamycin Phosphate 1 % External GelIndications:Acn e vulgaris Apply to clean face daily in the morning 60 g 5 11/18/2023 Active Clindamycin Phosphate 1 % External GelIndications:Acn e vulgaris Apply to clean face daily in the morning 60 g 5 08/02/2023 11/14/2023 Discontinued( Refill) documented as of this encounter (statuses as of 11/18/2023) Active Problems Problem Noted Date Diagnosed Date [...] or questions 11/05/2023 Lisa Saab RN 11/05/2023 Estimated Date of Delivery Comme nts Yes 01/28/2024 Based on last me nstrual period of 04/23/2023 (Exact Date) documented as of this encounter (statuses as of 11/18/2023) Resolved Problems Problem Noted Date Diagnosed Date Resolved Date Antepartum anemia complicating 12/30/2020 04/04/2021 Overview: hgb 11.5 at 27 weeks, start BID Vitron C Marginal insertion of umbili jaiden cord affecting management of mother 12/30/2020 Overview: MFM advise growth scan , normal first 12/13/202003/22 Overview: Transfer care from [facility]; NOB labs - blooe type B+, antibody neg, rubella immune, RPR non-reactive, HIV neg, HbSag neg, Gc/Ct neg, 1 hr GTT 98; declined cell-free DNA screen documented as of this encounter (statuses as of 11/18/2023) Immunizations Name Administration Dates Next Due TDAP [...] money to get more. Never true 07/12/2023 [place] Depression Scale Answer Date Recorded [place] Depression Scale Total 4 07/12/2023 The thought of harming myself has occurred to me . Never 07/12/2023 Childcare Answer Date Recorded Do you feel [...] encounter Miscellaneous Notes * Telephone Encounter - Carmelita Schroeder PA-C - 11/18/2023 9:48 AM EDT Signed Prescriptions: Disp Refills Clindamycin Phosphate 1 % External Gel 60 g 5 Sig: Apply to clean face daily in the morningAuthorizing Provider: CARMELITA SCHROEDER * Telephone Encounter - Sona Mulelr LPN - 11/18/2023 9:46 AM EDTPending Prescriptions: Disp Refills Clindamycin Phosphate 1 % External Gel 60 g 5 Sig: Apply to clean face daily in the morning documented in this encounter Plan of Treatment Upcoming Encounters Date Type Department Care Team (Late st Contact Info) Description 11/25/2023 11:45 AM EDT Office Visit Gynecology/Obstetrics [facility] [address] [place] [address] Mallika Francois, DAWNA [address] [place] [id number] Health Maintenance Due Date Last Done Comments Hepatitis B Vaccine (1 of 3 - 19+ 3-dose series) 2007 COVID-19 Vaccine (2022-2 4 season) 2022 Influenza Vaccine (FLU shot) (#1) 2023 Depression Screening 07/11/2024 07/12/2023 Diabetes Screening 01/04/2026 01/04/2023 Pap Smear 07/11/2026 07/12/2023 Cervical Cancer Screening 07/11/2028 HPV/Co-Test 07/11/2028 07/12/2023, 08/20/2020 DTaP,Tdap,and Td Vaccines (2 - Td or Tdap) 01/10/2031 01/10/2021 HPV (Gardasil) Vaccine Aged [...] as of this encounter Visit Diagnoses Diagnosis Acne vulgaris Other acne documented in this encounter Advance Directives * Full Code (Latest Code Status on File) Date Activated Date Inactivated Comments 03/25/2021 5:15 PM 03/28/2021 8:20 PM This order r eflects the patients wishes and were consensually agreed upon. Care Teams Utility Locator Relationship Specialty Start Date End Date Peg Blood MD [address] [place] [address] PCP - General Family Medicine 01/10/23 documented as of this encounter
--- OUTSIDE RECORDS SUMMARY | 2024-02-12 12:52 | External Medical Summary ---
Author Name Unknown Address Unknown Organization K01:[facility] [address] [place] [address] Laboratory Report Ordering Provider Test Date Status RENZO SCHRADER 11/05/2023 12:42:41 Final Observation Date Value Abnormality Reference (Units ) Status Retic, % (auto) 11/05/2023 12:42:41 2.55 Above high normal 0.80-1.90 (%) Final Reticulocytes, Absolute 11/05/2023 12:42:41 94.1 31.3-100.1 (K/uL) Final Reticulocyte fraction, immature 11/05/2023 12:42:41 21.5 Above high normal 2.5-20.6 (%) Final Reticulocyte HGB 11/05/2023 12:42:41 33.1 29.7-37.4 (pg) Final Performing Location [facility] [place] [address]
--- OUTSIDE RECORDS SUMMARY | 2024-02-12 12:52 | External Medical Summary | Summary of Care ---
Author Name Unknown Organization [facility] Address [address] [place] [address] Phone [phone] Care Team Providers Care Teacher Of Gifted Students Name Role Phone Peg Blood MD Primary Care Provider [phone] Reason for Visit * Reason Comments [facility] Return Encounter Details Date Type Department Care Team (Late st Contact Info) Description 11/25/2023 11:45 AM EDT Office Visit Gynecology/Obstetric [facility] [address] [facility] [place] [address] Mallika Francois CNM [address] [facility] [place], [place] [id number] Supervision of other normal , antepartum*; Health counseling; History of ; Antepartum multigravida of advanced maternal age Allergies No known active allergiesdocumented as of this encounter (statuses as of 11/25/2023) Medications Medication Sig Dispensed Refills Start Date [...] as of this encounter (statuses as of 11/25/2023) Active Problems Problem Noted Date Diagnosed Date [...] Shine RN 07/04/2023 Lack of knowledge of [facility] services Care Management Consult 07/04/2023 Love [...] as of this encounter (statuses as of 11/25/2023) Resolved Problems Problem Noted Date Diagnosed Date Resolved Date Antepartum anemia complicating 12/30/2020 04/04/2021 Overview: hgb 11.5 at 27 weeks, start BID Vitron C Marginal insertion of umbili jaiden cord affecting management of mother 12/30/2020 Overview: MFM advise growth scan , normal first 12/13/202003/22 Overview: Transfer care from [facility]; NOB labs - blooe type B+, antibody neg, rubella immune, RPR non-reactive, HIV neg, HbSag neg, Gc/Ct neg, 1 hr GTT 98; declined cell-free DNA screen documented as of this encounter (statuses as of 11/25/2023) Immunizations Name Administration Dates Next Due TDAP [...] money to get more. Never true 07/12/2023 [place] Depression Scale Answer Date Recorded [place] Depression Scale Total 4 07/12/2023 The thought [...] Sign Reading Time Taken Comments Blood Pressure 102/60 11/25/2023 11:41 AM EDT Pulse - - Temperature - - Respiratory Rate - - Oxygen Saturation - - Inhaled Oxygen Concentration - - Weight 74.8 kg (164 lb 14.4 oz) 024 11:41 AM EDT Height - - Body Mass Index 27.44 07/12/2023 1:19 PM EDT documented in this encounter Progress Notes * Mallika Francois CNM - 11/25/2023 11:45 AM EDT Piper Castellanos is a 33 year old female here for her routine OB appointment at 30w6d Her Estimated Date of Delivery: 01/28/24 REVIEW OF SYSTEMS: She affirms movement. Denies vaginal bleeding, LOF, contractions, N/V, headaches Discussed plans for TOLAC PHYSICAL EXAM: Filed Vitals: 11/25/23 1141 BP: 102/60 Weight: 74.8 kg (164 lb 14.4 oz) +FHT 150s Fundal height 30 ASSESSMENT/PLAN: No diagnosis found. Supervision of - labor precautions and kick counts reviewed - RTO in 2 weeks Mallika Francois CNM * Lucila Cardona MED ASSIST - 11/25/2023 11:41 AM EDT 30w6d Denies vaginal bleeding/rom + movements R Ear congestion for 2 months. ROUTE CONTRACTOR sister did look in ear and saw no signs of infection. Pt states PCP is not available for appointment. documented in this encounter Plan of Treatment Upcoming Encounters Date Type Department Care Team (Late st Contact Info) Description 12/09/2023 11:45 AM EDT Office Visit Gynecology/Obstetrics [facility] [address] [place] [address] Judith Montero, DNP, CN [address] [place] [address] Health Maintenance Due Date Last Done Comments Hepatitis B Vaccine (1 of 3 - 19+ 3-dose series) 2007 COVID-19 Vaccine ( - 2022-2 4 season) 2022 Influenza Vaccine (FLU shot) [...] as of this encounter Visit Diagnoses Diagnosis Supervision of other normal , antepartum- Primary Health counseling Other specified counseling History of Other postprocedural status Antepartum multigravida of advanced maternal age documented in this encounter Advance Directives * Full Code (Latest Code Status on File) Date Activated Date Inactivated Comments 03/25/2021 5:15 PM 03/28/2021 8:20 PM This order r eflects the patients wishes and were consensually agreed upon. Care Teams Teacher Of Gifted Students Relationship Specialty Start Date End Date Peg Blood MD [address] [place] [address] PCP - General Family Medicine 01/10/23 documented as of this encounter
--- OUTSIDE RECORDS SUMMARY | 2024-02-12 12:52 | External Medical Summary | Summary of Care ---
Author Name Unknown Organization [facility] Address [address] [facility] [address] Phone [phone] Care Team Providers Care Flocculator Operator Name Role Phone Peg Blood MD Primary Care Provider [phone] Encounter Details Date Type Department Care Team (Late st Contact Info) Description 12/27/2023 Telephone Gynecology/Obstetrics [facility] [address] [place] [address] Jenna Jean PA-C [address] [facility] [place] [address] Allergies No known active allergiesdocumented as of this encounter (statuses as of 12/27/2023) Medications Medication Sig Dispensed Refills Start Date [...] as of this encounter (statuses as of 12/27/2023) Active Problems Problem Noted Date Diagnosed Date [...] as of this encounter (statuses as of 12/27/2023) Resolved Problems Problem Noted Date Diagnosed Date Resolved Date Antepartum anemia complicating 12/30/2020 04/04/2021 Overview: hgb 11.5 at 27 weeks, start BID Vitron C Marginal insertion of umbili jaiden cord affecting management of mother 12/30/2020 Overview: MFM advise growth scan , normal first 12/13/202003/22 Overview: Transfer care from [facility]; NOB labs - blooe type B+, antibody neg, rubella immune, RPR non-reactive, HIV neg, HbSag neg, Gc/Ct neg, 1 hr GTT 98; declined cell-free DNA screen documented as of this encounter (statuses as of 12/27/2023) Immunizations Name Administration Dates Next Due TDAP [...] money to get more. Never true 07/12/2023 [place] Depression Scale Answer Date Recorded [place] Depression Scale Total 6 12/09/2023 The thought [...] encounter Miscellaneous Notes * Telephone Encounter - Flavia Sanchez OSA - 12/27/2023 12:32 PM EDT Needs rescheduled for 1 week f/u and US for next visit. No appointments available at time. Prefers Mondays around 11-12. But can be more flexible with time. Or /Th around 9:15. Would prefer a retail business analyst, but if none available just not [place]er. documented in this encounter Plan of Treatment Upcoming Encounters Date Type Department Care Team (Late st Contact Info) Description 01/03/2024 2:00 PM EDT Office Visit Gynecology/Obstetrics [facility] [address] [place] [address] Jenna Jean PA-C [address] [place] [address] [place], Nurse [facility] [address] [place] [address] 01/06/2024 9:45 AM EDT Imaging Radiology [facility] [address] [facility] [place] [address] [place] [address] Health Maintenance Due Date Last Done Comments [...] and were consensually agreed upon. Care Teams Flocculator Operator Relationship Specialty Start Date End Date Peg Blood MD [address] [place] [address] PCP - General Family Medicine 01/10/23 documented as of this encounter
--- OUTSIDE RECORDS SUMMARY | 2024-02-12 12:52 | External Medical Summary ---
Author Name Unknown Address Unknown Organization K01:[facility] - [address] [place] [address] Laboratory Report Ordering Provider Test Date Status RENZO SCHRADER 11/05/2023 12:42:41 Final Observation Date Value Abnormality Reference (Units ) Status Iron 11/05/2023 12:42:41 126 33-151 (ug /dL) Final Iron-binding capacity 11/05/2023 12:42:41 355 250-425 (ug/dL) Final Transferrin Sat % 11/05/2023 12:42:41 35 15 -55 (%) Final Performing Location [facility] - [address] [place] [address]
--- OUTSIDE RECORDS SUMMARY | 2024-02-12 12:52 | External Medical Summary | Summary of Care ---
Author Name Unknown Organization [facility] Address [address] [place] [address] Phone [phone] Care Team Providers Care Aquatic Ecologist Name Role Phone Peg Blood MD Primary Care Provider [phone] Reason for Visit * Reason Comments Return Visit Encounter Details Date Type Department Care Team (Late st Contact Info) Description 12/09/2023 11:45 AM EDT Office Visit Gynecology/Obstetric s [facility] [address] [facility] [place] [address] Judith Montero, DNP, CNM [address] [facility] [place] [id number] Health counseling*; Encounter for supervision of normal , antepartum, unspecified ; History of ; Multigravida of advanced maternal age in third trimester; Antepartum anemia complicating Allergies No known active allergiesdocumented as of this encounter (statuses as of 12/09/2023) Medications Medication Sig Dispensed Refills Start Date [...] as of this encounter (statuses as of 12/09/2023) Active Problems Problem Noted Date Diagnosed Date [...] Shine RN 07/04/2023 Lack of knowledge of [facility] services Care Management Consult 07/04/2023 Love [...] or questions 12/09/2023 Lisa Saab RN 12/09/2023 Estimated Date of Delivery Comme nts Yes 01/28/2024 Based on last me nstrual period of 04/23/2023 (Exact Date) documented as of this encounter (statuses as of 12/09/2023) Resolved Problems Problem Noted Date Diagnosed Date Resolved Date Antepartum anemia complicating 12/30/2020 04/04/2021 Overview: hgb 11.5 at 27 weeks, start BID Vitron C Marginal insertion of umbili jaiden cord affecting management of mother 12/30/2020 Overview: MFM advise growth scan , normal first 12/13/202003/22 Overview: Transfer care from [facility]; NOB labs - blooe type B+, antibody neg, rubella immune, RPR non-reactive, HIV neg, HbSag neg, Gc/Ct neg, 1 hr GTT 98; declined cell-free DNA screen documented as of this encounter (statuses as of 12/09/2023) Immunizations Name Administration Dates Next Due TDAP [...] money to get more. Never true 07/12/2023 [place] Depression Scale Answer Date Recorded [place] Depression Scale Total 4 07/12/2023 The thought [...] No 07/12/2023 Does the household have a [facility] general hospitallar source of income? (Household - for [...] in this encounter Progress Notes * Judith Montero, BOBO, CNM - 12/09/2023 12:05 PM EDT Piper Castellanos is a 33 year old female here for her routine OB appointment at 32w6d Her Estimated Date of Delivery: 01/28/24 REVIEW OF SYSTEMS: She affirms movement. Denies vaginal bleeding, LOF, contractions, N/V, headaches. [place] Depression Scale: [place] Depression Scale Total: 6 [place] suicide question and score: Score of 3 [...] reviewed - RTO in 2 weeks Judith Montero DNP, DAWNA * Lisa Saab RN - 12/09/2023 11:54 AM EDT Patient seen by [facility] Vault Mechanic. Patient denies any questions or concerns. documented in this encounter Plan of Treatment Upcoming Encounters Date Type Department Care Team (Late st Contact Info) Description 12/27/2023 11:45 AM EDT Office Visit Gynecology/Obstetrics [facility] [address] [place] [address] Jenna Jean PA-C [address] [place] [address] Scheduled Orders Name Type Priority Associated Diagnoses Orde r Schedule CBC WITH WBC DIFFERENTIAL Lab Routine Antepartum anemia complicating Ordered: 12/09/2023 Health Maintenance Due Date Last Done Comments Hepatitis B Vaccine (1 of - 19+ 3-dose series) 2007 COVID-19 Vaccine [...] and were consensually agreed upon. Care Teams Aquatic Ecologist Relationship Specialty Start Date End Date Peg Blood MD [address] [place] [address] PCP - General Family Medicine 01/10/23 documented as of this encounter
--- OUTSIDE RECORDS SUMMARY | 2024-02-12 12:52 | External Medical Summary | Summary of Care ---
Author Name Unknown Organization [facility] Address [address] [facility] [address] Phone [phone] Care Team Providers Care Hemstitching Machine Operator Name Role Phone Peg Blood MD Primary Care Provider [phone] Encounter Details Date Type Department Care Team (Late st Contact Info) Description 12/27/2023 Telephone Gynecology/Obstetrics [facility] [address] [place] [address] eJnna Jean PA-C [address] [place] [address] Allergies No known active allergiesdocumented as of [...] normal first 12/13/202003/22 Overview: Transfer care from [facility]; NOB labs - blooe type [...] money to get more. Never true 07/12/2023 [place] Depression Scale Answer Date Recorded [place] Depression Scale Total 6 12/09/2023 The thought [...] Or /Th around 9:15. Would prefer a balance bridge assembler, but if none available just not Backer. documented in this encounter Plan of Treatment Upcoming Encounters Date Type Department Care Team (Late st Contact Info) Description 01/03/2024 2:00 PM EDT Office Visit Gynecology/Obstetrics Marco Antonio Das [address] [place] [address] Jenna Jean PA-C [address] [place] [address] Das, Nurse [facility] [address] [place] [address] 01/06/2024 9:45 AM EDT Imaging Radiology [facility] 2nd [facility] [place] [address] [place] [address] Health Maintenance Due Date Last Done Comments [...] and were consensually agreed upon. Care Teams Hemstitching Machine Operator Relationship Specialty Start Date End Date Peg Blood MD [address] [place] [address] PCP - General Family Medicine 01/10/23 documented as of this encounter
--- OUTSIDE RECORDS SUMMARY | 2024-02-12 12:52 | External Medical Summary ---
Author Name Unknown Address Unknown Organization [id number][place] [address] [place] [address] Laboratory Report Ordering Provider Test Date Status RENZO SCHRADER 11/05/2023 12:42:41 Final Observation Date Value Abnormality Reference (Units ) Status Treponema pallidum Ab [Presence] in Serum by Immunoassay 11/05/2023 12:42:41 Nonreactive Nonreactive Final No serologic evidence of syp hilis. No additional testing clinicially indicated at this time. Consider repeat testing in 2-4 weeks if acute or primary syphilis is suspected. Performing Location [facility] [place] [address] [place] [address]
--- OUTSIDE RECORDS SUMMARY | 2024-02-12 12:52 | External Medical Summary | Summary of Care ---
Author Name Unknown Organization [facility] Address [address] [facility] [place] [address] Phone [phone] Care Team Providers Care Application Support Analyst Name Role Phone Peg Blood MD Primary Care Provider Reason for Visit * Reason Comments Return Visit Encounter Details Date Type Department Care Team (Late st Contact Info) Description 11/05/2023 11:45 AM EDT Office Visit Gynecology/Obstetric s Marco Antonio Das [address] [place] [address] Elis Moon CRNP [address] [place] [address] Encounter for supervision of other normal in third trimester*; Health counseling; History of ; Multigravida of advanced maternal age in third trimester Allergies No known active allergiesdocumented as of this encounter (statuses as of 11/05/2023) Medications Medication Sig Dispensed Refills Start Date End Date Status 19 29-1 MG Oral Tablet Take 1 Tablet by mouth in the morning. Active Clindamycin Phosphate 1 % External GelIndications:Acne vulgaris Apply to clean face daily in the morning 60 g 5 08/02/2023 Active documented as of this encounter (statuses as of 11/05/2023) Active Problems Problem Noted Date Diagnosed Date [...] Shine RN 07/04/2023 [facility] of [facility] Care Management Consult 07/04/2023 Love Shine [...] as of this encounter (statuses as of 11/05/2023) Resolved Problems Problem Noted Date Diagnosed Date Resolved Date Antepartum anemia complicating 12/30/2020 04/04/2021 Overview: hgb 11.5 at 27 weeks, start BID Vitron C Marginal insertion of umbili jaiden cord affecting management of mother 12/30/2020 Overview: MFM advise growth scan , normal first 12/13/202003/22 Overview: Transfer care from [facility]; NOB labs - blooe type B+, antibody neg, rubella immune, RPR non-reactive, HIV neg, HbSag neg, Gc/Ct neg, 1 hr GTT 98; declined cell-free DNA screen documented as of this encounter (statuses as of 11/05/2023) Immunizations Name Administration Dates Next Due TDAP [...] money to buy more. Never true 07/12/19 Within the past 12 months, t he food you bought just didn't last and you didn't have money to get more. Never true 07/12/2023 [place] Depression Scale Answer Date Recorded [place] Depression Scale Total 4 07/12/2023 The thought [...] Sign Reading Time Taken Comments Blood Pressure 100/58 11/05/2023 11:50 AM EDT Pulse - - Temperature - - Respiratory Rate - - Oxygen Saturation - - Inhaled Oxygen Concentration - - Weight 74.4 kg (164 lb) 11/05/2023 11:50 AM EDT Height - - Body Mass Index 27.29 07/12/2023 1:19 PM EDT documented in this encounter Progress Notes * Elis Moon CRNP - 11/05/2023 11:53 AM EDT 28w0d 3rd trimester labs today. Declines Tdap. Good movement, discussed FKC. No ctx/bleeding/leaking. Some ear congestion - suggest Sudafed, see PCP if worsening. 2 week return CHARLIE Schneider * Odilia Padgett LPN - 11/05/2023 11:51 AM EDT 28w0d Denies vaginal bleeding/rom + movement Pounding feeling in ears for past + weeks Gtt today Declines tdap documented in this encounter Nursing Notes * Lisa Saab, RN - 11/05/2023 11:58 AM EDT Patient seen by [facility] Machine Binding Folder. documented in this encounter Plan of Treatment Health Maintenance Due Date Last Done Comments Hepatitis B Vaccine (1 of 3 - 19+ 3-dose series) 2007 COVID-19 Vaccine (1 - 2022-2 4 season) 2022 Influenza Vaccine [...] and were consensually agreed upon. Care Teams Application Support Analyst Relationship Specialty Start Date End Date Peg Blood MD [address] [facility] [place] [address] PCP - General Family Medicine 9/21/23 documented as of this encounter
--- OUTSIDE RECORDS SUMMARY | 2024-02-12 12:52 | External Medical Summary ---
Author Name Unknown Address Unknown Organization [id number]:[facility] - [address] [place] [address] Laboratory Report Ordering Provider Test Date Status JESUSITA JAMES 12/27/2023 12:19:17 Final Observation Date Value Abnormality Reference (Units ) Status SYNC LEUKOCYTES IN BLOOD BY AUTOMATED COUNT 12/27/2023 12:19:17 12.54 Above high normal 4.00-10.80 (K/uL) Final Neutrophils/100 leukocytes in Blood by Manual count 12/27/2023 12:19:17 82.0 Above high normal 40.0-75.0 (%) Final Lymphocytes/100 leukocytes in Blood by Manual count 12/27/2023 12:19:17 16.0 Below low normal 18.0-42.0 (%) Final Monocytes/100 leukocytes in Blood by Manual count 12/27/2023 12:19:17 1.0 1.0-11.0 (%) Final Metamyelocytes/100 leukocytes in Blood by Manual count 12/27/2023 12:19:17 1.0 Above high normal <=0.0 (%) Final Neutrophils [#/volume] in Blood by Manual count 12/27/2023 12:19:17 10.28 Above high normal 1.80-7.70 (K/uL) Final Lymphocytes [#/volume] in Blood by Manual count 12/27/2023 12:19:17 2.01 1.00-4.80 (K/uL) Final Monocytes [#/volume] in Blood by Manual count 12/27/2023 12:19:17 0.13 0.00-1.10 (K/uL) Final Metamyelocytes [#/volume] in Blood by Manual count 12/27/2023 12:19:17 0.13 Above high normal <=0.00 (K/uL) Final Nucleated erythrocytes/100 leukocytes [Ratio] in Blood by Automated count 12/27/2023 12:19:17 Final Performing Location [facility] 0 - [address] [facility] [address]
--- OUTSIDE RECORDS SUMMARY | 2024-02-12 12:52 | External Medical Summary ---
Author Name Unknown Address Unknown Organization [id number]:[facility] [place] - [facility] [address] [place] [address] Laboratory Report Ordering Provider Test Date Status RENZO SCHRADER 11/05/2023 12:42:41 Final Observation Date Value Abnormality Reference (Units ) Status Creatinine 11/05/2023 12:42:41 0.7 0.5-1.0 (mg/dL) Final Glomerular filtration rate/1.73 sq M.predicted [Volume Rate/Area] in Serum, Plasma or Blood by Creatinine-based formula (CKD-EPI) 11/05/2023 12:42:41 >90 >=60 (mL/min) Final eGFR is calculated based on the CKD-EPI 2020 equation Performing Location [facility] [place] - [address] [place] [address]
--- OUTSIDE RECORDS SUMMARY | 2024-02-12 12:52 | External Medical Summary ---
Author Name Unknown Address Unknown Organization [id number]:[facility] [place] - [address] [place] [address] Laboratory Report Ordering Provider Test Date Status RENZO SCHRADER 11/05/2023 12:42:41 Final Observation Date Value Abnormality Reference (Units ) Status Ferritin 11/05/2023 12:42:41 48 13-150 (ng /mL) Final Performing Location [facility] - [address] [place] [address]
--- OUTSIDE RECORDS SUMMARY | 2024-02-12 12:52 | External Medical Summary ---
Author Name Unknown Address Unknown Organization K01:[facility] - [address] [place] [address] Laboratory Report Ordering Provider Test Date Status RENZO SCHRADER 11/05/2023 12:42:41 Final Observation Date Value Abnormality Reference (Units ) Status SYNC LEUKOCYTES IN BLOOD BY AUTOMATED COUNT 11/05/2023 12:42:41 13.24 Above high normal 4.00-10.80 (K/uL) Final Segs 11/05/2023 12:42:41 81.2 Above high normal 40.0-75.0 (%) Final Lymphs % 11/05/2023 12:42:41 10.6 Below low normal 18.0-42.0 (%) Final Monos 11/05/2023 12:42:41 5.3 1.0-11.0 (%) Final Eosinophils 11/05/2023 12:42:41 0.9 0.0-6.0 (%) Final Basos 11/05/2023 12:42:41 0.4 0.0-2.0 (%) Final Immature Granulocyte, Percent 11/05/2023 12:42:41 1.6 0.0-2.0 (%) Final Absolute Segs 11/05/2023 12:42:41 10.75 Above high normal 1.80-7.70 (K/uL) Final Lymphs, absolute 11/05/2023 12:42:41 1.41 1.00-4.80 (K/ul) Final Monos, Abs 11/05/2023 12:42:41 0.70 0.00-1.10 (K/uL) Final Eos, Abs 11/05/2023 12:42:41 0.12 0.00-0.70 (K/uL) Final Basos, Abs 11/05/2023 12:42:41 0.05 0.00-0.20 (K/uL) Final Immature Granulocytes, Number 11/05/2023 12:42:41 0.21 Above high normal 0.00-0.20 (K/uL) Final Performing Location LAB[facility]ATORY [facility] [place] - [address] [facility] [address]
--- OUTSIDE RECORDS SUMMARY | 2024-02-12 12:52 | External Medical Summary | Summary of Care ---
Author Name Unknown Organization [facility] Address [address] [place] [address] Phone [phone] Care Team Providers Care Fashion Editor Name Role Phone Peg Blood MD Primary Care Provider [phone] Reason for Visit * Reason Comments Outpatient Testing Encounter Details Date Type Department Care Team (Late st Contact Info) Description 11/05/2023 11:40 AM EDT Laboratory Laboratory, [facility] [address] [place] [address] [facility] [address] [place] [address] Encounter for supervision of other normal in second trimester Allergies No known active allergiesdocumented as [...] of normal 07/12/2023 History of 07/12/2023 Overview: [place] [facility] Health counseling 07/04/2023 Overview: Problem Action Taken [...] money to get more. Never true 07/12/2023 [place] Depression Scale Answer Date Recorded [place] Depression Scale Total 4 07/12/2023 The thought [...] on file documented as of this encounter Plan of Treatment Upcoming Encounters Date Type Department Care Team (Late st Contact Info) Description 11/25/2023 11:45 AM EDT Office Visit Gynecology/Obstetrics [facility] [address] [place] [address] Mallika Francois CNM [address] [place] [address] [place] [phone] Pending Results Name Type Priority Associated Diagnoses Date /Time 50-G GESTATIONAL GLUCOSE, 1 HOUR Lab Routine Encounter for supervision of other normal in second trimester 11/05/2023 12:42 PM EDT CBC WITH WBC DIFFERENTIAL AND ANEMIA REFLEX WORKUP Lab Routine Encounter for supervision of other normal in second trimester 11/05/2023 12:42 PM EDT SYPHILIS ANTIBODY SCREEN WITH REFLEX TO RPR Lab Routine Encounter for supervision of other normal in second trimester 11/05/2023 12:42 PM EDT ANEMIA CBC Lab Routine Encounter for supervision of other normal in second trimester 11/05/2023 12:42 PM EDT DIFFERENTIAL, AUTOMATED Lab Routine Encounter for supervision of other normal in second trimester 11/05/2023 12:42 PM EDT ANEMIA REFLEX CHEMISTRY HOLD Lab Routine Encounter for supervision of other normal in second trimester 11/05/2023 12:42 PM EDT SYPHILIS ANTIBODY SCREEN Lab Routine Encounter for supervision of other normal in second trimester 11/05/2023 12:42 PM EDT Health Maintenance Due Date Last Done [...] Encounter for supervision of other normal in second trimester documented in this encounter Advance Directives * Full Code (Latest Code Status on File) Date Activated Date Inactivated Comments 03/25/2021 5:15 PM 03/28/2021 8:20 PM This order r eflects the patients wishes and were consensually agreed upon. Care Teams Fashion Editor Relationship Specialty Start Date End Date Peg Blood MD [address] [place] [address] PCP - General Family Medicine 01/10/23 documented as of this encounter
--- OUTSIDE RECORDS SUMMARY | 2024-02-12 12:52 | External Medical Summary | Summary of Care ---
Author Name Unknown Organization [facility] Address [address] [facility] [address] Phone [phone] Care Team Providers Care Corporate Consultant Name Role Phone Peg Blood MD Primary Care Provider [phone] Encounter Details Date Type Department Care Team (Late st Contact Info) Description 12/27/2023 Telephone Gynecology/Obstetrics [facility] [address] [place] [address] Jenna Jean PA-C [address] [place] [address] Allergies No known active allergiesdocumented as of this encounter (statuses as of 12/31/2023) Medications Medication Sig Dispensed Refills Start Date [...] as of this encounter (statuses as of 12/31/2023) Active Problems Problem Noted Date Diagnosed Date [...] as of this encounter (statuses as of 12/31/2023) Resolved Problems Problem Noted Date Diagnosed Date Resolved Date Antepartum anemia complicating 12/30/2020 04/04/2021 Overview: hgb 11.5 at 27 weeks, start BID Vitron C Marginal insertion of umbili jaiden cord affecting management of mother 12/30/2020 Overview: MFM advise growth scan , normal first 12/13/202003/22 Overview: Transfer care from [facility]; NOB labs - blooe type B+, antibody neg, rubella immune, RPR non-reactive, HIV neg, HbSag neg, Gc/Ct neg, 1 hr GTT 98; declined cell-free DNA screen documented as of this encounter (statuses as of 12/31/2023) Immunizations Name Administration Dates Next Due TDAP [...] money to get more. Never true 07/12/2023 [place] Depression Scale Answer Date Recorded [place] Depression Scale Total 6 12/09/2023 The thought [...] Or /Th around 9:15. Would prefer a clam shovel operator, but if none available just not Backer. documented in this encounter Plan of Treatment Upcoming Encounters Date Type Department Care Team (Late st Contact Info) Description 01/03/2024 2:00 PM EDT Office Visit Gynecology/Obstetrics Marco Antonio Das [address] [place] [address] Jenna Jean PA-C [address] [place] [address] Das, Nurse [facility] [address] [place] [address] 01/06/2024 9:45 AM EDT Imaging Radiology [facility] 2nd Floor, [place] [address] [place] [address] 01/09/2024 9:45 AM EDT Office Visit Gynecology/Obstetrics [facility] [address] [place] [address] Carla Douglas PA-C [address] [facility] [place] [address] Nurse Thiago Healthy [facility] Return [facility] [address] [place] [address] Health Maintenance Due Date Last Done Comments [...] and were consensually agreed upon. Care Teams Corporate Consultant Relationship Specialty Start Date End Date Peg Blood MD [address] [facility] [place] [address] PCP - General Family Medicine 01/10/23 documented as of this encounter
--- OUTSIDE RECORDS SUMMARY | 2024-02-12 12:52 | External Medical Summary ---
Author Name Unknown Address Unknown Organization K0G:[facility] - [address] [place] [address] Laboratory Report Ordering Provider Test Date Status JESUSITA JAMES 12/27/2023 12:19:17 Final Observation Date Value Abnormality Reference (Units ) Status WBC, Total 12/27/2023 12:19:17 12.54 Above high normal 4 .00-10.80 (K/uL) Final RBC 12/27/2023 12:19:17 3.81 3.85-5.15 (M/uL) Final Hemoglobin 12/27/2023 12:19:17 11.7 Below low normal 12 .0-15.3 (g/dL) Final HCT 12/27/2023 12:19:17 35.4 Below low normal 36. 0-45.2 (%) Final MCV 12/27/2023 12:19:17 92.9 81.5-97.5 (fL) Final MCH 12/27/2023 12:19:17 30.7 27.0-34.0 (pg) Final MCHC 12/27/2023 12:19:17 33.1 32.0-36.0 (g/dL) Final RDW 12/27/2023 12:19:17 13.4 11.5-15.5 (%) Final Platelets 12/27/2023 12:19:17 167 140-400 (K /uL) Final MPV 12/27/2023 12:19:17 10.7 6.6-11.1 ( fL) Final Performing Location [facility] - [address] [place] [address]
--- OUTSIDE RECORDS SUMMARY | 2024-02-12 12:52 | External Medical Summary | Summary of Care ---
Author Name Unknown Organization [facility] Address [address] [facility] [place] [address] Phone [phone] Care Team Providers Care Intermediate Project Manager Name Role Phone Peg Blood MD Primary Care Provider [phone] Reason for Visit * Reason Comments Return Visit Encounter Details Date Type Department Care Team (Late st Contact Info) Description 12/27/2023 11:30 AM EDT Office Visit Gynecology/Obstetric s Marco Antonio Das [address] [place] [address] Jenna Jean PA-C [address] [place] [address] Encounter for supervision of other normal in [...] Shine RN 07/04/2023 Lack of knowledge of [facility] services Care Management Consult 07/04/2023 Love Shine [...] normal first 12/13/202003/22 Overview: Transfer care from [facility]; NOB labs - blooe type B+, [...] money to get more. Never true 07/12/2023 [place] Depression Scale Answer Date Recorded [place] Depression Scale Total 6 12/09/2023 The thought [...] Sign Reading Time Taken Comments Blood Pressure 86/58 12/27/2023 11:40 AM EDT Pulse - - Temperature - - Respiratory Rate - - Oxygen Saturation - - Inhaled Oxygen Concentration - - Weight 78 kg (172 lb) 12/27/2023 11:40 AM EDT Height 165.1 cm (5' 5") 12/27/2023 11:40 AM EDT Body Mass Index 28.62 12/27/2023 11:40 AM EDT documented in this encounter Progress Notes * Jenna Jean PA-C - 12/27/2023 12:02 PM EDT 35w3d No complaints. Denies LOF, VB, contractions. Pos fm. Reviewed GBS next visit. Plans GLH delivery. Has biomass technician. U/S ordered for position check with next appointment. Feels transverse today. Labs today. RTC in 1 weeks Jenna Jean PA-C documented in this encounter Nursing Notes * Lisa Saab RN - 12/27/2023 11:55 AM EDT Patient seen by [facility]. . * Letty Young LPN - 12/27/2023 11:41 AM EDT 35w3d Denies concerns documented in this encounter Miscellaneous Notes * Assessment & Plan Note - Lisa Saab RN - 12/27/2023 11:55 AM EDT Associated Problem(s): Health counseling Problem Action Taken Date entered Entered by Date resolved Current needs or questions GBS discussed Patient denies having any current needs or questions 12/27/2023 Lisa Saab RN 12/27/2023 documented in this encounter Plan of Treatment Upcoming Encounters Date Type Department Care Team (Late st Contact Info) Description 12/27/2023 12:40 PM EDT Laboratory Laboratory, [facility] [address] [place] [phone] [facility] [address] [place] [address] Arrived Scheduled Orders Name Type Priority Associated Diagnoses Orde r Schedule US PREG LIMITED 1 OR MORE FETUSES Medical Imaging Routine Encounter for supervision of other normal in third trimester Expected: 01/03/2024, Expires: 01/25/2025 Health Maintenance Due Date Last Done Comments [...] and were consensually agreed upon. Care Teams Intermediate Project Manager Relationship Specialty Start Date End Date Peg Blood MD [address] [place] [address] PCP - General Family Medicine 01/10/23 documented as of this encounter
--- OUTSIDE RECORDS SUMMARY | 2024-02-12 12:52 | External Medical Summary | Summary of Care ---
Author Name Unknown Organization [facility] Address [address] [place] [address] Phone [phone] Care Team Providers Care Medical Accountant Name Role Phone Peg Blood MD Primary Care Provider [phone] Reason for Visit * Reason Comments Return Visit Encounter Details Date Type Department Care Team (Late st Contact Info) Description 12/09/2023 11:45 AM EDT Office Visit Gynecology/Obstetric s [facility] [address] [facility] [place] [address] Judith Mc, DNP, CNM [address] [facility], [place] [id number] Health counseling*; Encounter for supervision of normal [...] (Iron Supplement) Take by mouth. Act yu Vitron-C 65-125 MG Oral Tablet (Iron-Vitamin C 65-125 mg per tab)Indications:Antepa rtum anemia complicating Take 1 Tablet by mouth in the morning. 60 Tablet 5 01/01/2024 Active documented as of this encounter (statuses [...] money to get more. Never true 07/12/2023 [place] Depression Scale Answer Date Recorded [place] Depression Scale Total 6 12/09/2023 The thought [...] Denies vaginal bleeding, LOF, contractions, N/V, headaches. [place] Depression Scale: [place] Depression Scale Total: 6 [place] suicide question and score: Score of 3 [...] 12/09/2023 11:54 AM EDT Patient seen by [facility] Fashion Styling Intern. Patient denies any questions or concerns. documented [...] 01/03/2024 2:00 PM EDT Office Visit Gynecology/Obstetrics [facility] [address] [place] [address] Jenna Jean PA-C [address] [place] [address] Nurse Thiago [facility] Return [email or web address] [address] [facility] [place] [address] 01/06/2024 9:45 AM EDT [facility] [address] [facility] [place] [address] Health Maintenance Due Date Last Done Comments [...] 57-10 Metamyelocytes % 1.0(H) <=0.0 % 12/27/19 24 3:35 PM EDT LABORATORY [place] 57-10 [...] 12/27/2023 12:19 PM EDT Judith Mc DNP, CN LAB BLOOD ORDERA BLES Performing Organization Address City/[facility]/ZIP Co de Phone Number LABORATORY [place] 57-10 [address] [facility] [place] [address] * DIFFERENTIAL, AUTOMATED (12/27/2023 12:19 PM EDT) Blood Venous blood specimen / Unknown Venipuncture / Unknown 12/27/2023 12:19 PM EDT 12/27/2023 12:19 PM EDT Judith Mc DNP, [facility] LAB BLOOD ORDERA BLES Performing Organization Address City/[facility]/ZIP Co de Phone Number LABORATORY [place] [address] [place] [address] * (ABNORMAL) CBC (12/27/2023 12:19 PM EDT) WBC 12.54(H) 4.00 - 10.80 K/uL 12/27/2023 3:35 PM EDT LABORATORY [place] 57-10 RBC 3.81 3.85 - 5.15 M/uL 12/27/2023 3:35 PM EDT LABORATORY [place] 57-10 HGB 11.7(L) 12.0 - 15.3 g/dL 12/27/2023 3:35 PM EDT LABORATORY [place] 57-10 HCT 35.4(L) 36.0 - 45.2 % [...] ORDERA BLES LABORATORY [place] [address] [facility] [place] [address] documented in this encounter Visit Diagnoses Diagnosis [...] and were consensually agreed upon. Care Teams Medical Accountant Relationship Specialty Start Date End Date Peg Blood MD [address] [facility] [place] [address] PCP - General Family Medicine 01/10/23 documented as of this encounter
--- OUTSIDE RECORDS SUMMARY | 2024-02-12 12:52 | External Medical Summary | Summary of Care ---
Author Name Unknown Organization [facility] Address [address] [place] [address] Phone [phone] Care Team Providers Care Monitoring And Evaluation Advisor Name Role Phone Peg Blood MD Primary Care Provider [phone] Reason for Visit * Reason Comments Outpatient Testing Encounter Details Date Type Department Care Team (Late st Contact Info) Description 12/27/2023 12:40 PM EDT Laboratory Laboratory, [facility] [address] [place] [address] [facility] [address] [place] [address] Arrived Allergies No known active allergiesdocumented as of [...] of normal 07/12/2023 History of 07/12/2023 Overview: [facility] Health counseling 07/04/2023 Overview: Problem Action Taken Date entered Entered by Date resolved Advance maternal age Maternal Medicine Consult 07/04/2023 Love Shine RN 07/04/2023 Lack of knowledge regarding Labor & Delivery Encourage childbirth education classes and Education class schedule given to patient 07/04/2023 Love Shine RN 07/04/2023 Lack of knowledge of [facility] services Care Management Consult 07/04/2023 Love [...] cord affecting management of mother 12/30/2020 Overview: [facility] advise growth scan , normal first 12/13/202003/22 Overview: Transfer care from [facility]; NOB labs - blooe type B+, antibody [...] money to get more. Never true 07/12/2023 [place] Depression Scale Answer Date Recorded [place] Depression Scale Total 6 12/09/2023 The thought [...] as of this encounter Plan of Treatment Health Maintenance [...] and were consensually agreed upon. Care Teams Monitoring And Evaluation Advisor Relationship Specialty Start Date End Date Peg Blood MD [address] [facility] [place] [address] PCP - General Family Medicine 01/10/23 documented as of this encounter
--- OUTSIDE RECORDS SUMMARY | 2024-02-12 12:53 | External Medical Summary ---
Author Name Unknown Address Unknown Organization K01:[facility]ATORY [facility] [place] [facility] [address] [place] [address] Laboratory Report Ordering Provider Test Date Status RENZO SCHRADER 11/05/2023 12:42:41 Final Observation Date Value Abnormality Reference (Units ) Status WBC, Total 11/05/2023 12:42:41 13.24 Above high normal 4 .00-10.80 (K/uL) Final RBC 11/05/2023 12:42:41 3.71 3.85-5.15 (M/uL) Final Hemoglobin 11/05/2023 12:42:41 11.4 Below low normal 12 .0-15.3 (g/dL) Final Anemia reflex testing trigge rs on a HGB < 12.0 for Females and HGB < 13.0 for Males in accordance with the WHO Anemia Guidelines
Anemia reflex testing triggers on a HGB < 12.0 for Females and HGB < 13.0 for Males in accordance with the WHO Anemia Guidelines HCT 11/05/2023 12:42:41 35.2 Below low normal 36. 0-45.2 (%) Final MCV 11/05/2023 12:42:41 94.9 81.5-97.5 (fL) Final MCH 11/05/2023 12:42:41 30.7 27.0-34.0 (pg) Final MCHC 11/05/2023 12:42:41 32.4 32.0-36.0 (g/dL) Final RDW 11/05/2023 12:42:41 13.3 11.5-15.5 (%) Final Platelets 11/05/2023 12:42:41 192 140-400 (K /uL) Final MPV 11/05/2023 12:42:41 11.5 6.6-11.1 ( fL) Final Nucleated erythrocytes/100 leukocytes [Ratio] in Blood by Automated count 11/05/2023 12:42:41 0 <=0 (/100 WBCs) Final Performing Location LAB[facility]ATORY [facility] [place] [facility] [address] [facility] [address]
--- OUTSIDE RECORDS SUMMARY | 2024-02-12 12:53 | External Medical Summary | Summary of Care ---
Author Name Unknown Organization [facility] Address [address] [facility] [address] Phone [phone] Care Team Providers Care Call Centre Supervisor Name Role Phone Peg Blood MD Primary Care Provider [phone] Reason for Visit * Reason Comments Return Visit [facility] Return Encounter Details Date Type Department Care Team (Late st Contact Info) Description 10/09/2023 2:00 PM EDT Office Visit Gynecology/Obstetric s Marco Antonio Das [address] [place] [address] Ofelia Wood CRNP [address] [place] [address] Encounter for supervision of other normal in second trimester*; Health counseling; History of ; Multigravida of advanced maternal age in second trimester Allergies No known active allergiesdocumented as of this encounter (statuses as of 10/09/2023) Medications Medication Sig Dispensed Refills Start Date End Date Status 19 29-1 MG Oral Tablet Take 1 Tablet by mouth in the morning. Active Clindamycin Phosphate 1 % External GelIndications:Acne vulgaris Apply to clean face daily in the morning 60 g 5 08/02/2023 Active documented as of this encounter (statuses as of 10/09/2023) Active Problems Problem Noted Date Diagnosed Date [...] 07/04/2023 Lack of knowledge of [facility] services Care Management Consult 07/04/2023 Love [...] or questions 10/09/2023 Lisa Pollard RN 10/09/2023 Estimated Date of Delivery Comme nts Yes 01/28/2024 Based on last me nstrual period of 04/23/2023 (Exact Date) documented as of this encounter (statuses as of 10/09/2023) Resolved Problems Problem Noted Date Diagnosed Date Resolved Date Antepartum anemia complicating 12/30/2020 04/04/2021 Overview: hgb 11.5 at 27 weeks, start BID Vitron C Marginal insertion of umbili jaiden cord affecting management of mother 12/30/2020 Overview: M advise growth scan , normal first 12/13/202003/22 Overview: Transfer care from [facility]; NOB labs - blooe type B+, antibody neg, rubella immune, RPR non-reactive, HIV neg, HbSag neg, Gc/Ct neg, 1 hr GTT 98; declined cell-free DNA screen documented as of this encounter (statuses as of 10/09/2023) Immunizations Name Administration Dates Next Due TDAP [...] money to get more. Never true 07/12/2023 [place] Depression Scale Answer Date Recorded [place] Depression Scale Total 4 07/12/2023 The thought [...] Sign Reading Time Taken Comments Blood Pressure 104/52 10/09/2023 2:02 PM EDT Pulse - - Temperature - - Respiratory Rate - - Oxygen Saturation - - Inhaled Oxygen Concentration - - Weight 71.8 kg (158 lb 3.2 oz) 10/09/2023 2:02 P M EDT Height - - Body Mass Index 26.33 07/12/2023 1:19 PM EDT documented in this encounter Progress Notes * Ofelia Wood CRNP - 10/09/2023 2:20 PM EDT 24w1d No concerns. Baby is active, discussed kick counts starting at 28w. No bleeding or LOF. Glucola with next visit. 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 Patient denies any questions or concerns. Lisa Pollard RN documented in this encounter Plan of Treatment Upcoming Encounters Date Type Department Care Team (Late st Contact Info) Description 11/05/2023 11:40 AM EDT Laboratory [facility], [facility] [address] [place] [phone] [place] [facility] [address] [place] [address] 11/05/2023 11:45 AM EDT Office Visit Gynecology/Obstetrics [place] [facility] [address] [place] [address] BackerElis CRNP [address] [place] [address] Scheduled Orders Name Type Priority Associated Diagnoses Orde r Schedule 50-G GESTATIONAL GLUCOSE, 1 HOUR Lab Routine Encounter for supervision of other normal in second trimester Expected: 11/05/2023 (Approximate), Expires: 10/08/2024 CBC WITH WBC DIFFERENTIAL AND ANEMIA REFLEX WORKUP Lab Routine Encounter for supervision of other normal in second trimester Expected: 11/05/2023 (Approximate), Expires: 10/08/2024 SYPHILIS ANTIBODY SCREEN WITH REFLEX TO RPR Lab Routine Encounter for supervision of other normal in second trimester Expected: 11/05/2023 (Approximate), Expires: 10/08/2024 Health Maintenance Due Date Last Done Comments Hepatitis B (1 of 3 - 19+ 3-dose series) 2007 COVID-19 Vaccine ( - 2022-2 4 season) 2022 Influenza Vaccine (FLU shot) (Season Ended) 2023 Depression Screening 07/11/2024 07/12/2023 Diabetes Screening 01/04/2026 01/04/2023 Pap Smear 07/11/2026 07/12/2023 Cervical Cancer Screening 07/11/2028 HPV/Co-Test 07/11/2028 07/12/2023, 08/20/2020 DTaP,Tdap,and Td Vaccines (2 - Td or Tdap) 01/10/2031 01/10/2021 GARDASIL-HPV IMMUNIZATION SERIES Aged Out No longer eligible b ased [...] for supervision of other normal in second trimester- Primary Health counseling Other specified counseling History of Other postprocedural status Multigravida of advanced maternal age in second trimester documented in this encounter Advance Directives * Full Code (Latest Code Status on File) Date Activated Date Inactivated Comments 03/25/2021 5:15 PM 03/28/2021 8:20 PM This order r eflects the patients wishes and were consensually agreed upon. Care Teams Call Centre Supervisor Relationship Specialty Start Date End Date Peg Blood MD [address] [facility] [place] [address] PCP - General Family Medicine 01/10/23 documented as of this encounter
--- OUTSIDE RECORDS SUMMARY | 2024-02-12 12:53 | External Medical Summary | Summary of Care ---
Author Name Unknown Organization [facility] Address [address] [facility] [address] Phone [phone] Care Team Providers Care Body Technician Name Role Phone Peg Blood MD Primary Care Provider [phone] Reason for Visit * Reason Comments Return Visit [facility] Return Encounter Details Date Type Department Care Team (Late st Contact Info) Description 10/09/2023 2:00 PM EDT Office Visit Gynecology/Obstetric s Marco Antonio Das [address] [place] [address] Ofelia Wood CRNP [address] [place] [address] Encounter for supervision of other normal in [...] Shine RN 07/04/2023 Lack of knowledge of [facility] Care Management Consult 07/04/2023 Love Shine [...] normal first 12/13/202003/22 Overview: Transfer care from [facility]; NOB labs - blooe type B+, [...] money to get more. 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 Patient denies any questions or concerns. Lisa Pollard RN documented in this encounter Plan of Treatment Upcoming Encounters Date Type Department Care Team (Late st Contact Info) Description 11/05/2023 11:40 AM EDT Laboratory Laboratory, [place] [facility] [address] [place] [address] Das[place] [facility] [address] [place] [address] 11/05/2023 11:45 AM EDT Office Visit Gynecology/Obstetrics [place] [facility] [address] [place] [address] BackerElis CRNP [address] [place] [address] Scheduled Orders Name Type Priority Associated Diagnoses [...] and were consensually agreed upon. Care Teams Body Technician Relationship Specialty Start Date End Date Peg Blood MD 200 [facility] [place] [address] PCP - General Family Medicine 01/10/23 documented as of this encounter
--- OUTSIDE RECORDS SUMMARY | 2024-02-12 12:53 | External Medical Summary ---
Author Name Unknown Address Unknown Organization K01:[facility]ORY [facility] [place] [address] [place] [address] Laboratory Report Ordering Provider Test Date Status RENZO SCHRADER 11/05/2023 12:42:41 Final Observation Date Value Abnormality Reference (Units ) Status Vitamin B12 11/05/2023 12:42:41 023 [id number] (pg/mL) Final Performing Location LAB[facility] [place] [address] [place] [address]
--- OUTSIDE RECORDS SUMMARY | 2024-02-12 12:53 | External Medical Summary | Summary of Care ---
Author Name Unknown Organization [facility] Address [address] [place] [address] Phone [phone] Care Team Providers Care Protection Manager Name Role Phone Peg Blood MD Primary Care Provider [phone] Reason for Visit * Reason Comments Return Visit Encounter Details Date Type Department Care Team (Late st Contact Info) Description 09/09/2023 3:45 PM EDT Office Visit Gynecology/Obstetric [facility] [address] [facility] [place] [address] Mallika Francois CNM [address] [facility] [place], [place] [phone] Health counseling*; History of ; Antepartum multigravida of advanced maternal age; Supervision of other normal , antepartum Allergies No known active allergiesdocumented as of this encounter (statuses as of 09/09/2023) Medications Medication Sig Dispensed Refills Start Date End Date Status 19 29-1 MG Oral Tablet Take 1 Tablet by mouth in the morning. Active Clindamycin Phosphate 1 % External GelIndications:Acne vulgaris Apply to clean face daily in the morning 60 g 5 08/02/2023 Active documented as of this encounter (statuses as of 09/09/2023) Active Problems Problem Noted Date Diagnosed Date [...] having any current needs or questions 08/09/2023 Lias Saab RN 08/09/2023 Estimated Date of Delivery Comme nts Yes 01/28/2024 Based on last me nstrual period of 04/23/2023 (Exact Date) documented as of this encounter (statuses as of 09/09/2023) Resolved Problems Problem Noted Date Diagnosed Date [...] as of this encounter (statuses as of 09/09/2023) Immunizations Name Administration Dates Next Due TDAP [...] money to get more. Never true 07/12/2023 [place] Depression Scale Answer Date Recorded [place] Depression Scale Total 4 07/12/2023 The thought of harming myself has occurred to me . Never 07/12/2023 Estimated Date of Delivery Comme nts [...] Sign Reading Time Taken Comments Blood Pressure 110/62 09/09/2023 3:14 PM EDT Pulse - - Temperature - - Respiratory Rate - - Oxygen Saturation - - Inhaled Oxygen Concentration - - Weight - - Height - - Body Mass Index - - documented in this encounter Progress Notes * Mallika Francois CNM - 09/09/2023 3:45 PM EDT Piper Castellanos is a 33 year old female here for her routine OB appointment at 19w6d Her Estimated Date of Delivery: 01/28/24 REVIEW OF SYSTEMS: She affirms movement. Denies vaginal bleeding, LOF, contractions, N/V, headache Not much appetite, nausea has improved PHYSICAL EXAM: Filed Vitals: 09/09/23 1514 BP: 110/62 +FHT 150s Fundal height at the umbilicus ASSESSMENT/PLAN: 1. Health counseling 2. History of Desires TOLAC 3. AMA (advanced maternal age) multigravida 35+ 4. Supervision of normal - had anatomy u/s today - preliminary results WNLs - RTO in 4 weeks Mallika Francois CNM * Rajni Dobbs LPN - 09/09/2023 3:14 PM EDT Pt is currently 19w6d with an Estimated Date of Delivery: 01/28/24 - Anatomy today. documented in this encounter Plan of Treatment Upcoming Encounters Date Type Department Care Team (Late st Contact Info) Description 10/09/2023 2:00 PM EDT Office Visit Gynecology/Obstetrics Marco Antonio Das [address] [place] [address] Ofelia Wood CRNP [address] [place] [address] Health Maintenance Due Date Last Done Comments Hepatitis B (1 of 3 - 19+ 3-dose series) 2007 COVID-19 Vaccine (2022-2 4 season) 2022 Influenza Vaccine (FLU shot) (Season Ended) 2023 Depression Screening 07/11/2024 07/12/2023 Pap Smear 07/11/2026 07/12/2023 Cervical Cancer Screening [...] Diagnosis Health counseling- Primary Other specified counseling History of Other postprocedural status Antepartum multigravida of advanced maternal age Supervision of other normal , antepartum documented in this encounter Advance Directives * Full Code (Latest Code Status on File) Date Activated Date Inactivated Comments 03/25/2021 5:15 PM 03/28/2021 8:20 PM This order r eflects the patients wishes and were consensually agreed upon. Care Teams Protection Manager Relationship Specialty Start Date End Date Peg Blood MD [address] [place] [address] PCP - General Family Medicine 01/10/23 documented as of this encounter
--- OUTSIDE RECORDS SUMMARY | 2024-02-12 12:53 | External Medical Summary ---
Author Name Unknown Address Unknown Organization K0G:LABORATORY [facility] [place] 57[address] - [address] [place] [address] Laboratory Report Ordering Provider Test Date Status TOD SCHRADERSOILA 11/05/2023 12:42:41 Final Observation Date Value Abnormality Reference (Units ) Status Glucose [Moles/volume] in Serum or Plasma --1 hour post 50 g glucose PO 11/05/2023 12:42:41 89 70-129 (mg/dL) Final Performing Location LABORATORY [facility] [place] 57-[address] 0 - [address] [place] [address]
[2024-02-12] MEDS: LACTATED RINGER'S 1,000 ML IV SCH (13:45)
--- NOTE | 2024-02-12 14:38 | Anesthesiology Consultation ---
Date of Service February 12, 2024 Assessment & Plan Chart Review Chart Review: Patient NOT seen in Pre Admission Testing and Acceptable Risk for Labor Epidural Consults Requested none ASA ASA2 Proposed Anesthesia Anesthesia Type: Labor Epidural Risk / Benefits Reviewed With: PT / POA / Parent / Guardian, Accepts Plan and Informed Consent Obtained History Height/Weight Height: 5 ft 5 in Weight: 80.286 kg Allergies Allergy/AdvReac Type Severity Reaction Status Date / Time No Known Allergies Allergy Unknown UNKNOWN Verified 11/09/20 14:06 Medications Home Medications Medication Instructions Recorded Confirmed Last Taken prenat.vits,jaiden,qbf-raof-koosy 1 tab PO DAILY 08/24/20 02/12/24 02/11/24 07:00 ketorolac 0.5 % eye drops 1 drp OPR Q6H PRN edema #5 mL 08/12/22 02/12/24 Unknown iron 1 tab PO DAILY 02/12/24 02/12/24 02/10/24 NPO Date Last Intake of Fluids: 02/12/24 Time Last Intake of Fluids: 14:30 Date Last Intake of Solids: 02/12/24 Time Last Intake of Solids: 06:00 Past Medical History Medical History Anemia History of chicken pox Exercise / Class Metabolic Activity Other Past Family History Family History Grandmother (Maternal) Colorectal cancer Father Colorectal cancer Denies family history of Ovarian cancer Prostate cancer Diabetes Heart disease Breast cancer Past Surgical History Surgical History H/O section H/O wisdom tooth extraction Past Anesthesia History No Hx of Anesthesia Complications and No Family Hx of Anesthesia Complications History of PONV No Hx of PONV and No Hx of Motion Sickness Social History Smoking Status: Never smoker Do You Dip or Chew Tobacco: No Hx Alcohol Use: No Hx Substance Use: No substance use type: former substance user Substance Use Type Other:: Patient reported using weed 20 years ago. Review of Systems ROS Unobtainable: All systems reviewed & are unremarkable except as noted in HPI & below Physical Exam Vital Signs Last Vital Signs Temp 36.5 C 02/12/24 12:05 Pulse 81 02/12/24 12:05 Resp 18 02/12/24 12:05 BP 101/60 02/12/24 12:05 ENMT Mouth: no TMJ abnormality Thyromental Distance: > or= 3.5 Finger Breadths Mallampati Class: II Neck normal visual inspection and trachea midline; neck extension not limited Respiratory normal respiratory effort Auscultation: lungs clear to auscultation bilaterally Cardiovascular Rate/Rhythm: regular rate and regular rhythm Heart Sounds: no murmur Musculoskeletal Spine: normal cervical ROM Extremities: full ROM of extremities Neurologic moves all extremities Psychiatric Orientation: alert and oriented x 3 Testing Laboratory Results 02/12/24 10:15
[2024-02-12] MEDS ORDERED: SODIUM CHLORIDE 0.9% PF INJ 10 ML VIAL EPI PRN (14:39)
[2024-02-12] MEDS ORDERED: NALOXONE HCL 0.4 MG/1 ML VIAL/CARP IV PRN (14:39)
[2024-02-12] MEDS ORDERED: ROPIVACAINE 0.5% PF 5 MG/ML 20 ML VIAL EPI PRN (14:39)
[2024-02-12] MEDS ORDERED: ePHEDrine sulfate 50 MG/ML AMP IV PRN (14:39)
[2024-02-12] MEDS ORDERED: LIDOCAINE 2% MPF LOCAL 5 ML VIAL EPI PRN (14:39)
[2024-02-12] MEDS ORDERED: diphenhydrAMINE 50 MG/ML VIAL IV PRN (14:39)
[2024-02-12] MEDS ORDERED: NALBUPHINE HCL INJ 10 MG/ML AMP IV PRN (14:39)
[2024-02-12] MEDS ORDERED: NALOXONE HCL 1 MG in SODIUM CHLORIDE 0.9% 1,000 ML IV PRN (14:39)
[2024-02-12] MEDS: fentaNYL citrate PF 100 MCG/2 ML VIAL ONE (14:50)
[2024-02-12] MEDS: LIDOCAINE 2%/EPINEPHRINE 1:200,000 20 ML PF ONE (14:50)
[2024-02-12] MEDS: BUPIVACAINE 0.25% PF 30 ML VIAL ONE (14:50)
[2024-02-12] MEDS: fentANYL 2 MCG/ML BUPIVacaine 0.125%-NSS 100ML BAG ONE (14:59)
[2024-02-12] MEDS: BUPIVACAINE 0.25% PF 30 ML VIAL EPI STA (15:49)
[2024-02-12] MEDS: SODIUM CHLORIDE 0.9% PF INJ 10 ML VIAL ONE (15:49)
[2024-02-12] MEDS: fentaNYL citrate PF 100 MCG/2 ML VIAL EPI STA (15:49)
[2024-02-12] MEDS: LIDOCAINE 2%/EPINEPHRINE 1:200,000 20 ML PF EPI STA (15:50)
[2024-02-12] MEDS: SODIUM CHLORIDE 0.9% PF INJ 10 ML VIAL EPI STA (15:50)
[2024-02-12] MEDS: OXYTOCIN 30 UNITS/NSS 30 UNITS/500 ML BAG IV PRN (16:10)
[2024-02-12] MEDS: ePHEDrine sulfate 50 MG/ML AMP ONE (18:37)
[2024-02-12] MEDS: fentANYL 2 MCG/ML BUPIVacaine 0.125%-NSS 100ML BAG EPI PRN (22:40)
--- NOTE | 2024-02-12 23:26 | Anesthesia Procedure Note ---
Date of Service February 12, 2024 Anesthesia Epidural Re-Dose Vital Signs Temp Pulse Resp BP Pulse Ox 37.0 C 89 16 119/66 93 02/12/24 21:48 02/12/24 23:23 02/12/24 21:48 02/12/24 23:22 02/12/24 23:23 Notes Pain Intensity: 0 Dilatation (cm): 6.0 Effacement (%): 90 Called by nursing to evaluate epidural as the patient is having increased pain. The epidural was re-dosed with the following medications (all medications via epidural route) after negative aspiration of the epidural catheter for CSF/HEME. 0.2 Ropivacaine ml via epidural After Epidural Re-Dose Mental Status: alert / awake / arousable and participated in evaluation Pain: improving with treatment Airway Patency, RR, SpO2: stable & adequate BP & HR: stable & adequate Additional Notes: redosed with 100 mcg fentanyl and 8 cc 0.25 bupi with improvement
[2024-02-12] MEDS: fentaNYL citrate PF 100 MCG/2 ML VIAL EPI PRN (23:47)
[2024-02-12] MEDS: BUPIVACAINE 0.25% PF 30 ML VIAL EPI PRN (23:47)
[2024-02-13] MEDS: CALCIUM CARBONATE 500 MG CHEWABLE TAB PO PRN (03:01)
[2024-02-13] MEDS: OXYTOCIN 30 UNITS/NSS 30 UNITS/500 ML BAG IV PRN (05:51)
[2024-02-13] MEDS ORDERED: oxyCODONE/ACETAMINOPHEN 5mg/325mg TAB PO PRN (06:22)
[2024-02-13] MEDS ORDERED: ACETAMINOPHEN W/CODEINE #3 1 TAB PO PRN (06:22)
[2024-02-13] MEDS ORDERED: bisacodyL 10 MG SUPP PR PRN (06:22)
[2024-02-13] MEDS ORDERED: OXYTOCIN 30 UNITS/NSS 30 UNITS/500 ML BAG IV PRN (06:22)
[2024-02-13] MEDS ORDERED: ACETAMINOPHEN 325 MG TAB PO PRN (06:22)
--- NOTE | 2024-02-13 06:29 | Delivery Summary ---
Vaginal Delivery Summary Date of Service February 13, 2024 Vaginal Delivery Summary Patient's been followed in the office for care and delivery. Her first delivery was for arrest of labor at 4 cm dilatation and prolonged rupture of membranes for over 30 hours. On admission to the hospital patient requested vaginal after section. Patient arrived at 41 weeks and 2 days gestation in active labor she was breathing through her contractions. Stated she did have them since 11 PM the night before. Her exam on admission was only 1 cm with the cervix firm vertex presentation at approximately -1 station. I let her labor spontaneously as long as she could. Once she got the 2 cm she stated she could not handle the pain anymore and she received epidural. She obtained good pain relief with the epidural. And then we started to augment her with IV Pitocin. We continued augmented with IV Pitocin she had a regular labor pattern. She made slow but steady progress. She was redosed 1 time for the epidural for pain control. Eventually she went to full dilatation. Pushed out a live male via direct occiput anterior position over an intact perineum. Nuchal cord x 1 was reduced over the infant's head. The head was allowed to stretch the perineum and delivered spontaneously. was suctioned through the mouth and the nose before delivery of the body. The cord was allowed to pulse for 3 minutes as requested by the parents. Then it was clamped and cut by the father. Cord blood was taken. The placenta was removed intact with IV Pitocin running. Examination revealed a right-sided sulcus laceration about residential up the vagina. A small left sulcus laceration. And a second-degree perineal tear. Repair was done by identifying the right sulcus laceration apex. Placing instant suture above the apex and using continuous suture to approximate the vaginal mucosa to the hymenal ring. Then on the left side the same procedure was repeated heavy Vicryl was used approximate the vaginal mucosa to the hymenal ring. I then used a deep suture of Vicryl placed in a horizontal fashion to approximate the rectovaginal septum. I then placed a deep suture and the bulbocavernosus muscles to approximate them. I had 2 interrupted sutures to approximate the perineal body. Another interrupted suture to approximate the rectal sphincter capsule. And then a running subcuticular suture 2-0 Vicryl approximate the perineal skin edges. Following this badge exam including rectovaginal examination revealed no stitches through the rectum and no hematoma formation. Quantitative blood loss was 260 mL patient Tollerated procedure well.
[2024-02-13] MEDS: METHYLERGONOVINE MALEATE 0.2 MG/ML AMP IM STA (06:35)
--- NOTE | 2024-02-13 06:54 | Anesthesia Procedure Note ---
Date of Service February 13, 2024 Anesthesia Post Epidural Note Vital Signs Vital Signs: Temp Pulse Resp BP Pulse Ox 36.7 C 80 18 125/54 L 97 02/13/24 06:10 02/13/24 06:52 02/13/24 06:10 02/13/24 06:29 02/13/24 06:52 Pain Intensity Abdomen: Pain Intensity: 2 Notes Mental Status: alert / awake / arousable and participated in evaluation Nausea / Vomiting: adequately controlled Pain: adequately controlled Airway Patency, RR, SpO2: stable & adequate BP & HR: stable & adequate Hydration State: stable & adequate Neuraxial Anesthesia: was administered and sensory block is resolving Anesthetic Complications: no major complications apparent Epidural: Removed without complications and With tip intact
[2024-02-13] MEDS: DIPHTHER/TETAN/PERTUS Vaccine (Tdap, Adol/Adult) 0.5mL IM ONE (07:42)
[2024-02-13] MEDS: METHYLERGONOVINE MALEATE 0.2 MG/ML AMP IM ONE (07:42)
[2024-02-13] MEDS: PRENATAL VITAMIN 1 TAB PO SCH (08:46)
[2024-02-13] MEDS: BENZOCAINE 20% SPRY 85 APPLN/85 GM CAN EXT PRN (08:46)
[2024-02-13] MEDS: DOCUSATE SODIUM 100 MG CAP PO SCH (08:46)
[2024-02-13] MEDS: ACETAMINOPHEN 325 MG TAB PO PRN (08:53)
[2024-02-13] MEDS: HYDROCORTISONE ACETATE 25 MG SUPP PR PRN (12:05)
[2024-02-13] MEDS: IBUPROFEN 600 MG TAB PO PRN (14:25)
[2024-02-13 19:16] VITALS: RESP 16
[2024-02-14 07:34] LABS: Hematocrit (blood only) 31.8 % (37.0-47.0); Hemoglobin 10.8 g/dl (12.0-16.0); Mean Corpuscular Hemoglobin 30.7 pg (25.0-34.0); Mean Corpuscular Volume 90.3 fL (80.0-100.0); Mean Platelet Volume 11.6 fL (9.4-12.4); Platelet Count 161 K/uL (130-400); RDW Coefficient of Variation 13.3 % (11.5-14.5); RDW Standard Deviation 43.3 fL (36.4-46.3); Red Blood Count 3.52 M/uL (4.20-5.40); White Blood Count 19.75 K/ul (4.8-10.8)
[2024-02-14 07:58] VITALS: BP 94/58; PULSE 74; TEMP 97.5; O2SAT 97
--- NOTE | 2024-02-14 11:08 | Obstetrical Progress Note ---
Date of Service February 14, 2024 Subjective Ambulation: ambulating normally Voiding: no voiding problems Passing Gas:: Yes Diet Tolerance:: regular diet Lochia:: Small Feeding Type:: breast feeding Current Pain Level(1-10): 0 doing well/plans to go home today c/o hemorrhoid pain Physical Exam Constitutional WD/WN, vitals as above Gastrointestinal (Abdomen) Inspection/Auscultation: abdomen normal to inspection Musculoskeletal Extremities: extremities normal to inspection Skin no rashes, warm and dry Neurologic patellar DTR's 2+ bilat, sensation intact Psychiatric A+Ox3, euthymic affect Results & Data Vital Signs (Past 12 Hours) Vital Signs Temp Pulse Resp BP Pulse Ox O2 Del Method 02/14/24 10:57 36.4 C L 74 16 94/58 L 97 02/14/24 07:40 36.4 C L 74 16 94/58 L 97 Room Air 02/14/24 03:22 36.7 C 77 16 104/66 99 Room Air Laboratory Results 02/12/24 02/14/24 10:15 06:59 WBC 14.60 H 19.75 H RBC 4.43 3.52 L Hgb 13.5 10.8 L Hct 39.4 31.8 L MCV 88.9 90.3 MCH 30.5 30.7 MCHC 34.3 34.0 RDW Std Deviation 42.3 43.3 RDW Coeff of Jesus Manuel 13.0 13.3 Plt Count 151 161 MPV 11.5 11.6 Treponema pallidum Ab Negative
[2024-02-14] MEDS ORDERED: bisacodyL 5 MG TABEC PO SCH (20:00)
== END 2024-02-14 12:30 | disposition home or self-care (01) | DRG 807 ==
LOC: OPB 07:55 → 4S1 08:06 → 4E2 02-13 09:00
DX: Z3A.41 41 weeks gestation of pregnancy; Z37.0 Single live birth; O48.0 Post-term pregnancy; O69.81X0 Labor and delivery complicated by cord around neck, without compression, not applicable or unspecified; O70.1 Second degree perineal laceration during delivery; O34.211 Maternal care for low transverse scar from previous cesarean delivery